=== PATIENT | male | born 1950 | race Caucasian/White ===

== ENCOUNTER 2017-12-31 10:05 | Outpatient (CLI) | payer MEDICARE ==
[2017-12-31] MEDS ORDERED: ISOVUE-370 76%-LOCM 1 ML ONE (11:42)
== END 2017-12-31 10:06 | disposition home or self-care (01) ==
LOC: BICCT 10:05
PROVIDERS: ATTEND Family Medicine
DX: C34.90 Malignant neoplasm of unspecified part of unspecified bronchus or lung (principal); R68.89 Other general symptoms and signs; Z90.2 Acquired absence of lung [part of]
CPT/HCPCS: 71260

== ENCOUNTER 2018-01-15 08:20 | Inpatient (IN) | payer MEDICARE ==
[2018-01-15 08:41] LABS: #Eosinphils 0.1 thou/uL (0.0-0.7); #Lymphocytes 0.8 thou/uL (1.20-3.40); #Monocytes 0.9 thou/uL (0.11-0.59); #Neutrophils 9.3 thou/uL (1.40-6.50); %Eosinophils 1.2 % (0.0-10.0); %Lymphocytes 7.2 % (21.0-51.0); %Monocytes 7.7 % (0.0-10.0); %Neutrophils 83.9 % (42.0-75.0); Hemoglobin 9.1 g/dL (14.0-18.0); Mean Corpuscular HGB CONC 31.9 g/dL (32.0-36.0); Mean Corpuscular Hemoglobin 27.5 pg (27.0-31.0); Mean Corpuscular Volume 86.3 fl (80.0-94.0); Mean Platelet Volume 5.2 fL (7.4-10.4); Platelet Count 530 thou/uL (130-400); RBC Distribution Width 13.6 % (11.5-14.5)
[2018-01-15 08:44] LABS: PTT 31.2 SEC (22.9-36.1); Prothrombin Time 13.1 SEC (12.0-14.7)
[2018-01-15 09:06] LABS: ALT (SGPT) 15 U/L (8-55); AST (SGOT) 14 U/L (5-34); Albumin 4.1 g/dL (3.4-4.8); Alkaline Phosphatase 102 U/L (40-150); Anion Gap 13 mmol/L (10-20); BUN (Urea Nitrogen) 20 mg/dL (8.4-25.7); Bilirubin, Total 0.4 mg/dL (0.2-1.2); Calc. Creatinine Clearance 60 mL/min (70-130); Calcium 10.3 mg/dL (7.8-10.44); Carbon Dioxide 32 mmol/L (23-31); Chloride 95 mmol/L (98-107); Estimated GFR-MDRD 76; Globulin 2.8 g/dL (2.4-3.5); Glucose 144 mg/dL (80-115); Potassium 4.9 mmol/L (3.5-5.1); Protein, Total 6.9 g/dL (5.8-8.1); Sodium 135 mmol/L (136-145)
[2018-01-15] MEDS ORDERED: Midazolam HCl 2 mg/2 ml Vial ONE (10:16)
[2018-01-15] MEDS ORDERED: Fentanyl 100 MCG/2 ML VIAL ONE (10:17)
--- NOTE | 2018-01-15 13:05 | RAD ---
PORTABLE UPRIGHT CHEST: INDICATION: Post lung biopsy. Sudden shortness of breath. The film shows development of a large left pneumothorax secondary to the lung biopsy. The patient is transferred back to CT suite for emergency chest tube placement. See CT-guided chest tube procedure . POS: [facility]
--- NOTE | 2018-01-15 13:24 | RAD ---
TWO VIEW CHEST: Portable inspiration and expiration chest exam obtained. INDICATION: Post lung biopsy and post left chest tube placement. FINDINGS: These films demonstrate a recurrent left pneumothorax which has occurred since the placement of the c hest tube. A CT at the time of the chest tube placement was obtained post chest tube placement which confirmed reexpansion of the lungs after the chest tube placement. The patient will be taken back to CT for adjustment of chest tube position as necessary. POS: [facility]
[2018-01-15] MEDS ORDERED: PROVENTIL INHALER 6.7 G (200 INHALATIONS) INH PRN (13:54)
--- NOTE | 2018-01-15 13:59 | CT ---
PROCEDURE: 1. Placement of left anterior chest tube with CT confirmation post chest tube placement performed at approximately 1148 hours. 2. Adjustment of the anterior chest tube with repeat CT chest at approximately 1252 hours. INDICATIONS: 1. Following a CT biopsy procedure, patient was taken to holding. The left lung biopsy was performed without complications and there was no pneumothorax post biopsy on the postprocedure CT. 2. Patient became hypoxic in the recovery room and a STAT chest x-ray revealed a large left pneumoth orax. Patient was taken back to CT for chest tube placement. The left anterior upper chest was prepped in the sterile manner. An Arrow 8 Cook Islander chest tube cathete r with trocar needle in place was inserted into the anterior left chest. The trocar was removed and t he catheter was advanced. The catheter was then attached to suction drainage. A CT scan was then performed and this confirmed reexpansion of the left lung with no significant resi dual pneumothorax. The chest tube appeared in adequate position. The tube was then secured with sutur e at the skin and a dressing placed. The tube was connected to Heimlich valve. PROCEDURE NOTE: After noticing a large left pneumothorax on the chest film and patient having low O2 sats, the patien t was immediately taken back to CT. The patient was placed on the CT table. The skin was cleaned with Betadine and an Arrow 8 [place] Islander chest tube kit was utilized. The 8 Cook Islander catheter with trocar was in serted into the left chest anteriorly and the catheter was advanced as the trocar was removed. Cathet er was attached to suction drainage. After suctioning the pneumothorax, CT confirmed no significant l eft pneumothorax. The catheter was then sutured to the skin and a sterile dressing applied. Heimlich valve was attached. Patient was taken back to the recovery room. The O2 sats returned to baseline and the patient was having no distress. A repeat chest x-ray taken in holding revealed a recurrent pneumothorax, even with chest tube in plac e and connected to Heimlich valve. The patient was then taken back to CT, where the tube was slightly readjusted and reattached to suction drainage. A repeat CT after readjustment confirmed reexpansion of the lung with only minimal residual pneumothorax at this time. A new sterile dressing was then nadira lied and the tube was reattached to Heimlich. The patient was in no distress, with O2 sats in the 90s . The patient was then taken back to recovery. POS: [facility]
--- NOTE | 2018-01-15 14:23 | CT ---
PROCEDURE CT GUIDED BIOPSY MASS LEFT LUNG: INDICATION: Mass in the left lung has been previously described and the patient is referred for biopsy of this ma ss with CT guidance. FINDINGS: A 19-gauge guide needle was introduced under CT guidance using an anterolateral approach. The mass i n the left upper lung was targeted. The needle was placed in the mid portion of the this mass using CT guidance. Trocar was removed and 20-gauge biopsy needle was attached. Biopsy sample was given to pathologist. Pathology confirmed material with Touch Prep Three successful biopsies were then obta ined at the same location and the samples were placed in formalin. Post procedure CT showed no significant pneumothorax. The patient was transferred to the recovery ro in good condition. CONSCIOUS SEDATION: The patient was given 25 mcg of Fentanyl and 1 mg Versed IV prior to beginning the procedure. PROCEDURE NOTE: The procedure including complications were discussed with the patient and . The likelihood of pn eumothorax was discussed with patient and the complications such as bleeding were also discussed. Op permit was signed and the patient desired to proceed. The patient was placed supine on the CT table. CT was obtained and the entry point on the skin was i dentified. The skin was then prepped and raped in a sterile manner. Local anesthesia was administer ed with Lidocaine. Conscious sedation was then administered with 25 mcg of Fentanyl and 1 mg Versed IV. A 19-gauge guide needle was introduced under CT guidance from an anterolateral approach in the left u pper chest. CT confirms placement of the tip of the needle within the mass in the left upper lung. Biopsy sample was then obtained with a 20-gauge biopsy instrument. The pathologist confirmed adequac y. Three additional cores were obtained and placed in formalin. Post procedure CT showed no significant pneumothorax. The catheter was sutured in place and a steril e dressing applied. There were no problems or complications at the time of the procedure. POS: [facility]
--- NOTE | 2018-01-15 15:21 | RAD ---
PORTABLE CHEST: Date: 01/15/18 Time: 1335 hours INDICATION: Post lung biopsy and post pneumothorax with chest tube placement follow-up. FINDINGS/IMPRESSION: There is recurrent left pneumothorax estimated in the 15-20% range. No other change. POS: [facility]
--- NOTE | 2018-01-15 15:26 | HP ---
HISTORY OF PRESENT ILLNESS: Mr. Maher is a 67-year-old gentleman with a history of right-sided l maryam cancer, status post right thoracotomy with upper and middle lobectomies. We have no records of h is previous treatment. He had chemo and radiation for advanced age disease following his right thora cotomy in [place], [place] in 2007. Recently, he had a 20 pound weight loss and he has begun to experi ence personality changes and falls. He has had no jaundice or bone pain. He on CT scan had a large left-sided lung mass and underwent a percutaneous biopsy today. He had a pneumothorax post-biopsy, w hich required placement of a small bore chest tube by Radiology. He is being admitted for observatio n with hopes for discharge in the next 24-48 hours. PAST MEDICAL HISTORY: 1. Congestive heart failure. 2. Depression. 3. Lung cancer. 4. Esophageal stricture post-radiation therapy. PAST SURGICAL HISTORY: 1. Hernia repair in 1967. 2. Right thoracotomy with upper and middle lobectomy in 2007. 3. Bilateral corneal transplants. SOCIAL HISTORY: He quit smoking around the time of his original thoracotomy. He is , does no t use alcohol. ALLERGIES: PENICILLIN. CURRENT MEDICATIONS: 1. Lisinopril 5 mg 1/2 tablet daily. 2. [place] 7.5/325 solution 5 mL as needed every 6 hours. 3. Lasix 20 mg every day p.r.n. 4. Flomax 0.4 mg every day. 5. Lovastatin 10 mg every day. 6. Wellbutrin-XL 300 mg daily. 7. Digoxin 125 mcg daily. 8. Carvedilol 3.125 mg every day. REVIEW OF SYSTEMS: Not performed. PHYSICAL EXAMINATION: GENERAL: This is an elderly cachectic gentleman who just underwent lung biopsy with an anteriorly pl aced chest tube to a Heimlich valve. LUNGS: Clear bilaterally. HEART: Rhythm is regular. ABDOMEN: Soft with some distention. There is active bowel sounds. EXTREMITIES: There is no edema. ASSESSMENT AND PLAN: Chest x-ray, this x-ray series both with chest tube and after chest tube was pl aced have been reviewed. He still has a small pneumothorax. He still has a small air leak with coug h on his chest tube. We will put him in the hospital and have him use incentive spirometer and repea t his chest x-ray tomorrow. If this is okay, he can probably go home tomorrow.
[2018-01-15] MEDS ORDERED: Milk Of Magnesia 30 ML UDCUP PO PRN (16:13)
[2018-01-15] MEDS: HYDROcodone/Acetaminophen 7.5/325 mg Tablet PO PRN ×2 (16:39→22:30)
[2018-01-15] MEDS: Famotidine 20 MG TAB PO SCH (20:00)
[2018-01-16] MEDS: HYDROcodone/Acetaminophen 7.5/325 mg Tablet PO PRN ×3 (04:29→20:53)
[2018-01-16] MEDS ORDERED: Sodium Chloride 0.9% 10 ML ONE (07:45)
[2018-01-16] MEDS: Loratadine 10 MG TAB PO SCH (08:35)
[2018-01-16] MEDS: Lisinopril 2.5 MG TAB PO SCH (08:35)
[2018-01-16] MEDS: Carvedilol 3.125 MG TAB PO SCH (08:36)
[2018-01-16] MEDS: Rosuvastatin 10 MG TAB PO SCH (08:36)
[2018-01-16] MEDS: Furosemide 20 MG TAB PO SCH (08:36)
[2018-01-16] MEDS: Digoxin 0.125 MG TAB PO SCH (08:36)
[2018-01-16] MEDS: Tamsulosin HCl 0.4 MG CAP PO SCH (08:36)
[2018-01-16] MEDS: Famotidine 20 MG TAB PO SCH ×2 (08:36→20:53)
--- NOTE | 2018-01-16 09:00 | RAD ---
CHEST 2 VIEWS: Date: 01/16/18 HISTORY: Follow-up pneumothorax. COMPARISON: Prior day's study. FINDINGS: Left-sided Heimlich valve type tube is present. Tube is along the left mid lung field laterally. The size of the left-sided pneumothorax has increased as compared to the prior study. No other interval c hange. IMPRESSION: Increased size to the left-sided pneumothorax. Findings telephone to Kavya, the patient's nurse, at the time of this dictation. CODE CR. POS: [facility]
[2018-01-16] MEDS: Fentanyl 100 MCG/2 ML VIAL SLOW IVP PRN (10:10)
[2018-01-16] MEDS ORDERED: Ketorolac Tromethamine 15 MG/ML VIAL IVP SCH (12:00)
[2018-01-16] MEDS: Ketorolac Tromethamine 30 MG/ML VIAL IVP SCH ×3 (12:45→23:48)
[2018-01-17] MEDS: HYDROcodone/Acetaminophen 7.5/325 mg Tablet PO PRN ×2 (03:14→20:53)
[2018-01-17] MEDS: Ketorolac Tromethamine 30 MG/ML VIAL IVP SCH ×4 (06:21→23:40)
[2018-01-17] MEDS: Furosemide 20 MG TAB PO SCH (08:48)
[2018-01-17] MEDS: Famotidine 20 MG TAB PO SCH ×2 (08:48→20:53)
[2018-01-17] MEDS: Carvedilol 3.125 MG TAB PO SCH (08:48)
[2018-01-17] MEDS: Tamsulosin HCl 0.4 MG CAP PO SCH (08:48)
[2018-01-17] MEDS: Loratadine 10 MG TAB PO SCH (08:48)
[2018-01-17] MEDS: Rosuvastatin 10 MG TAB PO SCH (08:48)
[2018-01-17] MEDS: Digoxin 0.125 MG TAB PO SCH (08:48)
[2018-01-17] MEDS: Lisinopril 2.5 MG TAB PO SCH (08:48)
--- NOTE | 2018-01-17 09:53 | RAD ---
PORTABLE CHEST: Date: 01/17/18 HISTORY: Follow-up pneumothorax. COMPARISON: Prior day's exam. FINDINGS: Left-sided Heimlich valve tube remains in position. There is significant improvement in the left-side d pneumothorax, still with mild apical pneumothorax remaining. No other interval change. IMPRESSION: Small residual apical pneumothorax on the left. Significant improvement in appearance as compared to the prior exam. POS: [facility]
[2018-01-17] MEDS: HYDROcodone/Acetaminophen 5/325 mg Tablet PO PRN (14:47)
[2018-01-18] MEDS: HYDROcodone/Acetaminophen 7.5/325 mg Tablet PO PRN ×2 (03:28→20:09)
[2018-01-18] MEDS: Ketorolac Tromethamine 30 MG/ML VIAL IVP SCH ×3 (06:12→17:48)
--- NOTE | 2018-01-18 08:35 | RAD ---
CHEST 1 VIEW: Date: 01/18/18 HISTORY: Pneumothorax. Follow-up. COMPARISON: 01/17/18. FINDINGS: Cardiac silhouette magnified by projection. Pulmonary vasculature unremarkable. Small left apical pne umothorax is unchanged. Calcification at the right apex and mass at the left apex are stable. Small c aliber left thoracostomy tube has changed position slightly, now directed more superiorly. Cardiac mo nitor leads overlie the chest. IMPRESSION: Small left apical pneumothorax, stable. POS: [facility]
[2018-01-18] MEDS: Furosemide 20 MG TAB PO SCH (09:45)
[2018-01-18] MEDS: Carvedilol 3.125 MG TAB PO SCH (09:45)
[2018-01-18] MEDS: Lisinopril 2.5 MG TAB PO SCH (09:45)
[2018-01-18] MEDS: Famotidine 20 MG TAB PO SCH ×2 (09:45→20:10)
[2018-01-18] MEDS: Digoxin 0.125 MG TAB PO SCH (09:45)
[2018-01-18] MEDS: Rosuvastatin 10 MG TAB PO SCH (09:46)
[2018-01-18] MEDS: Loratadine 10 MG TAB PO SCH (09:46)
[2018-01-18] MEDS: Tamsulosin HCl 0.4 MG CAP PO SCH (09:46)
[2018-01-18] MEDS: HYDROcodone/Acetaminophen 5/325 mg Tablet PO PRN (15:54)
[2018-01-19] MEDS: HYDROcodone/Acetaminophen 7.5/325 mg Tablet PO PRN ×2 (06:10→20:07)
[2018-01-19] MEDS: Ketorolac Tromethamine 30 MG/ML VIAL IVP SCH ×4 (06:11→17:35)
[2018-01-19] MEDS: Carvedilol 3.125 MG TAB PO SCH (09:51)
[2018-01-19] MEDS: Digoxin 0.125 MG TAB PO SCH (09:51)
[2018-01-19] MEDS: Furosemide 20 MG TAB PO SCH (09:51)
[2018-01-19] MEDS: Famotidine 20 MG TAB PO SCH ×2 (09:51→20:07)
[2018-01-19] MEDS: Loratadine 10 MG TAB PO SCH (09:51)
[2018-01-19] MEDS: Lisinopril 2.5 MG TAB PO SCH (09:51)
[2018-01-19] MEDS: Rosuvastatin 10 MG TAB PO SCH (09:52)
[2018-01-19] MEDS: Tamsulosin HCl 0.4 MG CAP PO SCH (09:52)
[2018-01-19] MEDS: Fentanyl 100 MCG/2 ML VIAL SLOW IVP PRN (13:04)
[2018-01-19 13:41] LABS: CO2 Tension 51.7 mmHg (35.0-45.0); pH, Arterial 7.33 (7.35-7.45)
[2018-01-19 13:42] LABS: Actual Bicarbonate (HCO3a) 26.6 mEq/L (22-28); Base Excess (BEa) 0.3 mEq/L (-2.0 to +3.0); O2 Tension (PaO2) 54.4 mmHg (> 80.0)
[2018-01-19 13:43] LABS: Calcium, Ionized 1.2 mmol/L (1.12-1.30); Hemoglobin (Hb) 8.4 g/dL (14.0-18.0)
[2018-01-19 13:44] LABS: ALV-art Gradient 237.475 (0-20); Puncture Site RB
[2018-01-19] MEDS ORDERED: Lidocaine 1% w/Epinephrine 1:100K 20 ML VIAL ONE (13:54)
--- NOTE | 2018-01-19 13:57 | RAD ---
PORTABLE AP CHEST X-RAY: 01/19/2018 HISTORY: Post thoracostomy tube. COMPARISON: 01/18/2018 FINDINGS: The left-sided thoracostomy tube remains in place; however, the left-sided pneumothorax is larger in size, and the pneumothorax occupies at least 30% of the volume of the left hemithorax. Parenchymal c hanges, volume loss, and calcifications in the right upper lung zone and right lung apex are again se en, related to chronic lung changes. The cardiac silhouette is within normal limits. The rounded pa renchymal opacity/mass in the right upper lobe is again present. No other interval change. IMPRESSION: 1. Interval enlargement of the left-sided pneumothorax when compared to the most recent study on . 2. Left upper lobe mass. 3. Parenchymal lung changes and calcification with volume loss in the right upper lung zone with pos t surgical changes, right upper lung zone. 4. The above findings were discussed with Santa, the nurse in charge of the patient's hospital care, o n 01/19/2018 at 1224 hours. CODE CR POS: [facility]
--- NOTE | 2018-01-19 14:01 | PDOC.PN ---
- Subjective Encounter Start Date: 01/19/18 Encounter Start Time: 14:00 Subjective: awake, sob+, on 100% non rebreather - Objective Resuscitation Status: Resuscitation Status FULL:Full Resuscitation MAR Reviewed: Yes Vital Signs & Weight: Vital Signs (12 hours) Temp Pulse Resp BP BP Pulse Ox 01/19/18 11:47 98.5 F 102 H 16 117/61 96 01/19/18 09:51 107 H 01/19/18 09:45 98.4 F 107 H 17 113/66 95 01/19/18 08:40 98.4 F 107 H 17 95 01/19/18 04:00 98.2 F 102 H 18 114/64 96 01/19/18 02:35 98 Weight Admit Weight 131 lb Weight 131 lb 4.8 oz I&O: 01/18/18 01/19/18 01/20/18 06:59 06:59 06:59 Intake Total 931 1560 Output Total 10 1300 Balance 921 260 Result Diagrams: 01/15/18 08:28 01/15/18 08:28 Phys Exam - Physical Examination HEENT: PERRLA, moist MMs Neck: no JVD, supple decreased air entry b/l Cardiovascular: RRR, no significant murmur Gastrointestinal: soft, no distention, positive bowel sounds Musculoskeletal: no edema, pulses present Neurological: non-focal, moves all 4 limbs Psychiatric: A&O x 3 Dx/Plan (1) Tension pneumothorax Code(s): J93.0 - SPONTANEOUS TENSION PNEUMOTHORAX Status: Acute (2) Lung cancer Code(s): C34.90 - MALIGNANT NEOPLASM OF UNSP PART OF UNSP BRONCHUS OR LUNG Status: Chronic Qualifiers: Laterality: right (3) HTN (hypertension) Code(s): I10 - ESSENTIAL (PRIMARY) HYPERTENSION Status: Chronic Qualifiers: Hypertension type: essential hypertension Qualified Code(s): I10 - Essential (primary) hypertension (4) CHF (congestive heart failure) Code(s): I50.9 - HEART FAILURE, UNSPECIFIED Status: Chronic Qualifiers: Heart failure type: unspecified Heart failure chronicity: chronic Qualified Code(s): I50.9 - Heart failure, unspecified (5) Dyslipidemia Code(s): E78.5 - HYPERLIPIDEMIA, UNSPECIFIED Status: Chronic (6) BPH (benign prostatic hyperplasia) Code(s): N40.0 - BENIGN PROSTATIC HYPERPLASIA WITHOUT LOWER URINRY TRACT SYMP Status: Chronic Qualifiers: Lower urinary tract symptom presence: symptoms absent Qualified Code(s): N40.0 - Benign prostatic hyperplasia without lower urinary tract symptoms - Plan will be getting chest tube now, here for the same -: d/w at bedside, is full code for now -: has recurrence of lung cancer, bx reveals poorly diff adenoca -: on coreg, dig, lisinopril, small dose lasix and flomax -: duonebs prn, I.spirometry. Will f/u. Echo for EF * . Review of Systems - Medications/Allergies Allergies/Adverse Reactions: Allergies Allergy/AdvReac Type Severity Reaction Status Date / Time Penicillins Allergy Verified 01/14/18 12:00 Medications: Current Medications Hydrocodone Bitart/Acetaminophen ([place] 7.5/325) 1 tab PO Q6H PRN PRN Reason: Pain Last Admin: 01/19/18 06:10 Dose: 1 tab Hydrocodone Bitart/Acetaminophen ([place] 5/325) 1 tab PO Q4H PRN PRN Reason: Moderate Pain (4-6) Last Admin: 01/18/18 15:54 Dose: 1 tab Albuterol Sulfate (Proventil Hfa) 2 puff INH Q4H PRN PRN Reason: Wheezing or Cough Carvedilol (Coreg) 3.125 mg PO DAILY [facility] Last Admin: 01/19/18 09:51 Dose: 3.125 mg Digoxin (Lanoxin) 0.125 mg PO DAILY [facility] Last Admin: 01/19/18 09:51 Dose: 0.125 mg Famotidine (Pepcid) 20 mg PO BID [facility] Last Admin: 01/19/18 09:51 Dose: 20 mg Fentanyl (Sublimaze) 25 mcg SLOW IVP Q2H PRN PRN Reason: Pain Last Admin: 01/19/18 13:04 Dose: 25 mcg Furosemide (Lasix) 20 mg PO DAILY [facility] Last Admin: 01/19/18 09:51 Dose: 20 mg Ketorolac Tromethamine (Toradol) 15 mg IVP Q6HR [facility] Stop: 01/21/18 12:01 Last Admin: 01/19/18 11:49 Dose: 15 mg Lisinopril (Zestril) 2.5 mg PO DAILY [facility] Last Admin: 01/19/18 09:51 Dose: 2.5 mg Loratadine (Claritin) 10 mg PO DAILY [facility] Last Admin: 01/19/18 09:51 Dose: 10 mg Magnesium Hydroxide (Milk Of Magnesium) 30 ml PO DAILYPRN PRN PRN Reason: Constipation Rosuvastatin Calcium (Crestor) 10 mg PO DAILY [facility] Last Admin: 01/19/18 09:52 Dose: 10 mg Sodium Chloride (Flush - Normal Saline) 10 ml IVF Q12HR [facility] Last Admin: 01/19/18 09:52 Dose: 10 ml Sodium Chloride (Flush - Normal Saline) 10 ml IVF PRN PRN PRN Reason: Saline Flush Last Admin: 01/18/18 06:13 Dose: 10 ml Tamsulosin HCl (Flomax) 0.4 mg PO DAILY [facility] Last Admin: 01/19/18 09:52 Dose: 0.4 mg
[2018-01-19] MEDS ORDERED: Morphine 10 MG/ML VIAL SLOW IVP PRN (14:05)
--- NOTE | 2018-01-19 14:40 | RAD ---
PORTABLE AP CHEST RADIOGRAPH: Date: 01-19-18 History: Code green. Left sided pneumothorax. Comparison: 01-19-18 at 1206 hours. FINDINGS: There has been interval progressive enlargement of the left sided pneumothorax with a large left pneu mothorax now present with collapse of portions of the left lung. Left sided thoracostomy tube is now in a different location and I am unsure if the catheter remains in the pleural space based on this si ngle projection. The mass in the left upper lobe is seen. Chronic opacity with calcifications in the right upper lobe with associated post-surgical changes are again seen. The patient is rotated to the right which limits adequate evaluation but developing tension pneumothorax is a possibility. No other interval change. IMPRESSION: 1. Interval enlargement of the left sided pneumothorax with a large left sided pneumothorax present a nd suggestion of developing tension pneumothorax. 2. Above findings were discussed with Candice nurse on the hospital floor on 01-19-18 at 1346 hours. T he attending physician for the code was not available due to status of the patient. POS: [facility]
[2018-01-19] MEDS: PROVENTIL INHALER 6.7 G (200 INHALATIONS) INH SCH ×3 (15:01→22:17)
--- NOTE | 2018-01-19 15:44 | RAD ---
CHEST ONE VIEW: History: Pneumothorax. Comparison: Prior day. FINDINGS: There is a very small apical pneumothorax remaining. Satisfactory appearance of the left sided chest tube. Densely calcified right upper lobe mass is present. IMPRESSION: Trace left apical pneumothorax remaining. POS: [facility]
[2018-01-19] MEDS ORDERED: diphenhydrAMINE 50 MG/ML VIAL IVP PRN (23:44)
[2018-01-19] MEDS ORDERED: Lorazepam 2 MG/ML VIAL SLOW IVP SCH (23:45)
[2018-01-20] MEDS: Ketorolac Tromethamine 30 MG/ML VIAL IVP SCH ×5 (00:22→23:22)
--- NOTE | 2018-01-20 01:14 | OP ---
DATE OF OPERATION: 01/19/2018 PREOPERATIVE DIAGNOSIS: Worsening left pneumothorax. POSTOPERATIVE DIAGNOSIS: Worsening left pneumothorax. PROCEDURE: Left chest tube placement. DRAIN: A 28-Amharic straight chest tube. DESCRIPTION OF PROCEDURE: The patient was brought to the Intensive Care Unit for acute shortness of breath. Chest x-ray showed a worsening left pneumothorax. Left chest was prepped and draped in usua l sterile fashion. An area over the left lateral chest wall was anesthetized with 1% lidocaine with epinephrine. The chest was then sharply entered. A 28-Amharic chest tube was placed with good burst of air. This was connected to the atrium. Lung was allowed to be coughed up and acute air leak stop ped. The patient immediately had improvement of his saturations and felt better. Tube was secured w ith 0 silk suture and sterile dressing applied.
[2018-01-20] MEDS ORDERED: Haloperidol Lactate 5 MG/ML VIAL SLOW IVP SCH (01:30)
[2018-01-20] MEDS: PROVENTIL INHALER 6.7 G (200 INHALATIONS) INH SCH ×6 (02:27→21:38)
[2018-01-20] MEDS ORDERED: Lorazepam 2 MG/ML VIAL SLOW IVP SCH (02:30)
[2018-01-20] MEDS ORDERED: Sterile Water 10 ML VIAL FS SCH (03:45)
[2018-01-20] MEDS ORDERED: Ziprasidone 20 MG VIAL IM SCH (03:45)
[2018-01-20 08:26] LABS: #Eosinphils 0.2 thou/uL (0.0-0.7); #Lymphocytes 0.8 thou/uL (1.20-3.40); #Monocytes 1.2 thou/uL (0.11-0.59); #Neutrophils 7.9 thou/uL (1.40-6.50); %Basophils 0.3 % (0.0-1.0); %Eosinophils 2.2 % (0.0-10.0); %Lymphocytes 7.7 % (21.0-51.0); %Monocytes 11.9 % (0.0-10.0); Hemoglobin 8.2 g/dL (14.0-18.0); Mean Corpuscular HGB CONC 31.3 g/dL (32.0-36.0); Mean Corpuscular Hemoglobin 26.7 pg (27.0-31.0); Mean Corpuscular Volume 85.5 fL (78.0-98.0); Mean Platelet Volume 5.6 fL (7.4-10.4); Platelet Count 543 thou/uL (130-400); Red Blood Cell (RBC) Count 3.06 mill/uL (4.70-6.10); White Blood Cell (WBC) Count 10.1 thou/uL (4.8-10.8)
--- NOTE | 2018-01-20 08:34 | PRG ---
DATE OF SERVICE: 01/20/2018 This morning he appears to be somewhat encephalopathic, but in no distress. His x-ray shows complete reexpansion of his left lung. PHYSICAL EXAMINATION: VITAL SIGNS: Pulse 117, blood pressure 140/80, sats 98%, respirations 21. CHEST: Chest reveals decreased breath sounds, no wheezing. CARDIAC: Normal S1, S2, no gallops. ABDOMEN: Soft, no mass. No recent lab has been ordered. IMPRESSION: 1. Chronic obstructive pulmonary disease. 2. Left pneumothorax. 3. Adenocarcinoma. PLAN: He can be transferred out of the ICU. Continue neb treatment and supportive care. I will follow.
[2018-01-20 08:52] LABS: ALT (SGPT) 15 U/L (8-55); AST (SGOT) 25 U/L (5-34); Albumin 3.3 g/dL (3.4-4.8); Alkaline Phosphatase 85 U/L (40-150); Anion Gap 13 mmol/L (10-20); BUN (Urea Nitrogen) 18 mg/dL (8.4-25.7); Bilirubin, Total 0.5 mg/dL (0.2-1.2); Calc. Creatinine Clearance 70 mL/min (70-130); Calcium 9.2 mg/dL (7.8-10.44); Carbon Dioxide 28 mmol/L (23-31); Chloride 99 mmol/L (98-107); Estimated GFR-MDRD Greater than 90; Globulin 2.5 g/dL (2.4-3.5); Glucose 100 mg/dL (80-115); Potassium 4.3 mmol/L (3.5-5.1); Protein, Total 5.8 g/dL (5.8-8.1); Sodium 136 mmol/L (136-145)
--- NOTE | 2018-01-20 09:08 | CON ---
DATE OF CONSULTATION: 01/19/2018 HISTORY OF PRESENT ILLNESS: Van Maher is a 67-year-old gentleman, cachectic, who was admitted t o the [facility] for a CT guided biopsy. Performed on 01/15/2018, he developed a pneumothorax shortly after the biopsy and small-bore chest tube was placed in. This evening, he developed marked respiratory distress with small-bore chest tube in place, probably clotted off, a large chest tube was inserted by Dr. Alcocer. He is now in the ICU and appears to be in no distress. 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 She for 38 years. 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 This was done in 2007. He apparently has been doing well until October and November, he then became short of breath and deconditioned, lost considerable weight. He was initially sent for physical therapy a nd continued weight loss. X-ray showed a mass in the left upper lung. So far, CT guided biopsy show ed adenocarcinoma. He was found on multiple times, but he denies any headache. 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 PAST SURGICAL HISTORY: In 2007, upper and middle lobectomy in the right side, bilateral cochlear imp lants for hearing, hernia repair. MEDICATIONS: From home include Flomax 0.4, rosuvastatin 10, lisinopril 2.5, hydrocodone, Lasix 20, d igoxin 0.125, Zyrtec 10, Coreg 3.125 plus albuterol inhaler. ALLERGIES: PENICILLIN. SOCIAL AND FAMILY HISTORY: As noted, no alcohol abuse. REVIEW OF SYSTEMS: Ten-point negative. PHYSICAL EXAMINATION: GENERAL: Sats 100% on 4 liters, pulse 100, blood pressure 130/70, respiratory rate 18. CHEST: Decreased breath sounds without any wheezing. CARDIAC: Normal S1, S2, no gallops. ABDOMEN: Soft without any masses. IMPRESSION: 1. Large left pneumothorax associated with dyspnea, status post CT guided biopsy of a lung mass. 2. Reexpansion of the pneumothorax following the chest tube insertion. 3. Probably chronic obstructive pulmonary disease. 4. Weight loss. 5. Hypertension. 6. Deaf. 7. History of congestive heart failure. PLAN: Await results of his scan. Pulmonary Critical Care will follow while in the ICU, appea rs to be stable. He does have a chest tube. Consultation note of 70 minutes, 50% in direct patient care.
--- NOTE | 2018-01-20 09:14 | RAD ---
SINGLE VIEW OF THE CHEST: Comparison: 01-19-18 History: Pneumothorax. Chest tube placement. FINDINGS: Single view of the chest shows a normal sized cardiomediastinal silhouette. The left sided chest tube is again seen. There may be a small tiny apical left pneumothorax. Opacification associated with olimpia cifications is seen in the right upper lobe. There are areas of airspace opacity in the left upper lo be and in the left hilar region. IMPRESSION: 1. Tiny residual left apical pneumothorax. 2. Airspace opacity in the left upper lobe could represent an infiltrate or mass. POS: [facility]
[2018-01-20] MEDS: Famotidine 20 MG TAB PO SCH ×2 (09:42→21:39)
[2018-01-20] MEDS: Loratadine 10 MG TAB PO SCH (09:42)
[2018-01-20] MEDS: Carvedilol 3.125 MG TAB PO SCH (09:42)
[2018-01-20] MEDS: Lisinopril 2.5 MG TAB PO SCH (09:42)
[2018-01-20] MEDS: risperiDONE 0.25 MG TAB PO SCH ×2 (09:42→21:39)
[2018-01-20] MEDS: Rosuvastatin 10 MG TAB PO SCH (09:43)
[2018-01-20] MEDS: Digoxin 0.125 MG TAB PO SCH (09:43)
[2018-01-20] MEDS: Tamsulosin HCl 0.4 MG CAP PO SCH (09:43)
[2018-01-20] MEDS: Furosemide 20 MG TAB PO SCH (09:43)
--- NOTE | 2018-01-20 12:38 | PDOC.PN ---
- Subjective Encounter Start Date: 01/20/18 Encounter Start Time: 07:15 Subjective: is confused this am and is in restraints - Objective Resuscitation Status: Resuscitation Status FULL:Full Resuscitation MAR Reviewed: Yes Vital Signs & Weight: Vital Signs (12 hours) Temp Pulse Resp BP Pulse Ox 01/20/18 11:00 98.3 F 01/20/18 10:05 119 H 23 H 99 01/20/18 09:43 110 H 01/20/18 09:42 110 H 134/85 01/20/18 08:00 97.5 F L 120 H 23 H 97 01/20/18 07:00 97.5 F L 01/20/18 06:20 99 01/20/18 04:00 97.8 F 01/20/18 02:27 121 H 18 100 Weight Admit Weight 131 lb Weight 131 lb 13.383 oz Most Recent Monitor Data Heart Rate from ECG 121 NIBP 134/85 NIBP BP-Mean 105 Respiration from ECG 15 SpO2 100 I&O: 01/19/18 01/20/18 01/21/18 06:59 06:59 06:59 Intake Total 1560 930 150 Output Total 1300 850 600 Balance 260 80 -450 Result Diagrams: 01/20/18 08:20 01/20/18 08:20 Additional Labs: Accuchecks 01/19/18 13:22 POC Glucose 146 H Phys Exam - Physical Examination HEENT: PERRLA dry mucosa Neck: no JVD, supple Respiratory: no wheezing, no rales chest tube left chest Cardiovascular: RRR, no significant murmur Gastrointestinal: soft, non-tender, positive bowel sounds Musculoskeletal: no edema, pulses present Neurological: non-focal, moves all 4 limbs Dx/Plan (1) Tension pneumothorax Code(s): J93.0 - SPONTANEOUS TENSION PNEUMOTHORAX Status: Resolved (2) Lung cancer Code(s): C34.90 - MALIGNANT NEOPLASM OF UNSP PART OF UNSP BRONCHUS OR LUNG Status: Chronic Qualifiers: Laterality: right (3) HTN (hypertension) Code(s): I10 - ESSENTIAL (PRIMARY) HYPERTENSION Status: Chronic Qualifiers: Hypertension type: essential hypertension Qualified Code(s): I10 - Essential (primary) hypertension (4) CHF (congestive heart failure) Code(s): I50.9 - HEART FAILURE, UNSPECIFIED Status: Chronic Qualifiers: Heart failure type: unspecified Heart failure chronicity: chronic Qualified Code(s): I50.9 - Heart failure, unspecified (5) Dyslipidemia Code(s): E78.5 - HYPERLIPIDEMIA, UNSPECIFIED Status: Chronic (6) BPH (benign prostatic hyperplasia) Code(s): N40.0 - BENIGN PROSTATIC HYPERPLASIA WITHOUT LOWER URINRY TRACT SYMP Status: Chronic Qualifiers: Lower urinary tract symptom presence: symptoms absent Qualified Code(s): N40.0 - Benign prostatic hyperplasia without lower urinary tract symptoms - Plan personality change from few days before hospitalization -: will get MRI if he can lay still with some ativan/meena, d/w -: -on, cant get his PET scan now -: gentle iv hydration, echo for lv function -: is on coreg, dig, lisinopril, crestor, hold lasix for now * . Review of Systems - Medications/Allergies Allergies/Adverse Reactions: Allergies Allergy/AdvReac Type Severity Reaction Status Date / Time Penicillins Allergy Verified 01/14/18 12:00 Medications: Current Medications Hydrocodone Bitart/Acetaminophen ([place] 7.5/325) 1 tab PO Q6H PRN PRN Reason: Pain Last Admin: 01/19/18 20:07 Dose: 1 tab Hydrocodone Bitart/Acetaminophen ([place] 5/325) 1 tab PO Q4H PRN PRN Reason: Moderate Pain (4-6) Last Admin: 01/18/18 15:54 Dose: 1 tab Albuterol Sulfate (Proventil Hfa) 2 puff INH Q4H [facility] Last Admin: 01/20/18 10:09 Dose: Not Given Albuterol/Ipratropium (Duoneb) 3 ml NEB [id number] [facility] Carvedilol (Coreg) 3.125 mg PO DAILY [facility] Last Admin: 01/20/18 09:42 Dose: 3.125 mg Digoxin (Lanoxin) 0.125 mg PO DAILY [facility] Last Admin: 01/20/18 09:43 Dose: 0.125 mg Famotidine (Pepcid) 20 mg PO BID [facility] Last Admin: 01/20/18 09:42 Dose: 20 mg Fentanyl (Sublimaze) 25 mcg SLOW IVP Q2H PRN PRN Reason: Pain Last Admin: 01/19/18 13:04 Dose: 25 mcg Furosemide (Lasix) 20 mg PO DAILY [facility] Last Admin: 01/20/18 09:43 Dose: 20 mg Ketorolac Tromethamine (Toradol) 15 mg IVP Q6HR [facility] Stop: 01/21/18 12:01 Last Admin: 01/20/18 11:58 Dose: 15 mg Lisinopril (Zestril) 2.5 mg PO DAILY [facility] Last Admin: 01/20/18 09:42 Dose: 2.5 mg Loratadine (Claritin) 10 mg PO DAILY [facility] Last Admin: 01/20/18 09:42 Dose: 10 mg Magnesium Hydroxide (Milk Of Magnesium) 30 ml PO DAILYPRN PRN PRN Reason: Constipation Morphine Sulfate (Morphine) 2 mg SLOW IVP Q4H PRN PRN Reason: Chest Pain/BP Elevations Risperidone (Risperidone) 0.25 mg PO BID [facility] Last Admin: 01/20/18 09:42 Dose: 0.25 mg Rosuvastatin Calcium (Crestor) 10 mg PO DAILY [facility] Last Admin: 01/20/18 09:43 Dose: 10 mg Sodium Chloride (Flush - Normal Saline) 10 ml IVF Q12HR [facility] Last Admin: 01/20/18 09:44 Dose: 10 ml Sodium Chloride (Flush - Normal Saline) 10 ml IVF PRN PRN PRN Reason: Saline Flush Last Admin: 01/18/18 06:13 Dose: 10 ml Tamsulosin HCl (Flomax) 0.4 mg PO DAILY [facility] Last Admin: 01/20/18 09:43 Dose: 0.4 mg Zolpidem Tartrate (Ambien) 5 mg PO HSPRN PRN PRN Reason: .SLEEP
[2018-01-20] MEDS: Zolpidem Tartrate 5 MG TAB PO PRN (21:39)
[2018-01-20] MEDS: HYDROcodone/Acetaminophen 7.5/325 mg Tablet PO PRN (23:41)
[2018-01-21] MEDS: PROVENTIL INHALER 6.7 G (200 INHALATIONS) INH SCH ×2 (02:13→06:55)
[2018-01-21] MEDS: Ketorolac Tromethamine 30 MG/ML VIAL IVP SCH ×2 (07:02→13:30)
[2018-01-21] MEDS ORDERED: Ziprasidone 20 MG CAP PO SCH (09:00)
--- NOTE | 2018-01-21 09:51 | PRG ---
DATE OF SERVICE: 01/21/2018 SUBJECTIVE: This morning, he is awake, alert, responsive. OBJECTIVE: VITAL SIGNS: Sats are 90%, pulse 120, temperature 98, blood pressure 130/56. CHEST: Chest reveals decreased breath sounds without any wheezing. CARDIAC: Normal S1, S2. No gallops. ABDOMEN: Soft, no masses. LABORATORY DATA: Chemistry profile is unremarkable. IMPRESSION: Encephalopathy, adenocarcinoma, pneumothorax, chronic obstructive pulmonary disease. PLAN: The patient appears to be at his baseline. Hopefully, once the chest tube is removed, he can be discharged home for ongoing further evaluation.
[2018-01-21] MEDS: Carvedilol 3.125 MG TAB PO SCH (10:00)
[2018-01-21] MEDS: Digoxin 0.125 MG TAB PO SCH (10:00)
[2018-01-21] MEDS: Furosemide 20 MG TAB PO SCH (10:00)
[2018-01-21] MEDS: Lisinopril 2.5 MG TAB PO SCH (10:00)
[2018-01-21] MEDS: Tamsulosin HCl 0.4 MG CAP PO SCH (10:00)
[2018-01-21] MEDS: Famotidine 20 MG TAB PO SCH ×2 (10:00→21:38)
[2018-01-21] MEDS: Loratadine 10 MG TAB PO SCH (10:27)
[2018-01-21] MEDS: Rosuvastatin 10 MG TAB PO SCH (10:27)
--- NOTE | 2018-01-21 11:55 | PDOC.PN ---
- Subjective Encounter Start Date: 01/21/18 Encounter Start Time: 09:00 Subjective: not oriented but awake and pacing betw chair and bed -: not wearing hearing aid -: sitter in room - Objective Resuscitation Status: Resuscitation Status FULL:Full Resuscitation MAR Reviewed: Yes Vital Signs & Weight: Vital Signs (12 hours) Temp Pulse Resp BP BP BP Pulse Ox 01/21/18 10:00 130 H 106/57 L 01/21/18 08:40 99.5 F 130 H 19 106/57 L 96 01/21/18 06:59 93 L 01/21/18 06:56 133 H 18 01/21/18 06:16 98.9 F 110 H 18 134/56 L Weight Admit Weight 131 lb Weight 131 lb 13.383 oz Most Recent Monitor Data Heart Rate from ECG 115 NIBP 146/131 NIBP BP-Mean 136 Respiration from ECG 19 SpO2 100 I&O: 01/20/18 01/21/18 01/22/18 06:59 06:59 06:59 Intake Total 930 250 Output Total 850 1225 Balance 80 -975 Result Diagrams: 01/20/18 08:20 01/20/18 08:20 Phys Exam - Physical Examination HEENT: PERRLA, sclera anicteric Neck: no JVD, supple Respiratory: no wheezing, no rales chest tube left side+ Cardiovascular: RRR, no significant murmur Gastrointestinal: soft, non-tender, positive bowel sounds Musculoskeletal: no edema, pulses present Neurological: non-focal, moves all 4 limbs Dx/Plan (1) Acute encephalopathy Code(s): G93.40 - ENCEPHALOPATHY, UNSPECIFIED Status: Acute (2) Tension pneumothorax Code(s): J93.0 - SPONTANEOUS TENSION PNEUMOTHORAX Status: Resolved (3) Lung cancer Code(s): C34.90 - MALIGNANT NEOPLASM OF UNSP PART OF UNSP BRONCHUS OR LUNG Status: Chronic Qualifiers: Laterality: right (4) HTN (hypertension) Code(s): I10 - ESSENTIAL (PRIMARY) HYPERTENSION Status: Chronic Qualifiers: Hypertension type: essential hypertension Qualified Code(s): I10 - Essential (primary) hypertension (5) CHF (congestive heart failure) Code(s): I50.9 - HEART FAILURE, UNSPECIFIED Status: Chronic Qualifiers: Heart failure type: unspecified Heart failure chronicity: chronic Qualified Code(s): I50.9 - Heart failure, unspecified (6) Dyslipidemia Code(s): E78.5 - HYPERLIPIDEMIA, UNSPECIFIED Status: Chronic (7) BPH (benign prostatic hyperplasia) Code(s): N40.0 - BENIGN PROSTATIC HYPERPLASIA WITHOUT LOWER URINRY TRACT SYMP Status: Chronic Qualifiers: Lower urinary tract symptom presence: symptoms absent Qualified Code(s): N40.0 - Benign prostatic hyperplasia without lower urinary tract symptoms - Plan geodon 20mg bid with cogentin -: will need placement once chest tube is out -: MRI when cognitively stable and calm -: outpt PET scan -: nebs, i.spirometry, fentanyl and toradol prn * . On coreg, dig, lisinopril. Review of Systems - Medications/Allergies Allergies/Adverse Reactions: Allergies Allergy/AdvReac Type Severity Reaction Status Date / Time Penicillins Allergy Verified 01/14/18 12:00 Medications: Current Medications Hydrocodone Bitart/Acetaminophen ([place] 7.5/325) 1 tab PO Q6H PRN PRN Reason: Pain Last Admin: 01/20/18 23:41 Dose: 1 tab Hydrocodone Bitart/Acetaminophen ([place] 5/325) 1 tab PO Q4H PRN PRN Reason: Moderate Pain (4-6) Last Admin: 01/18/18 15:54 Dose: 1 tab Albuterol/Ipratropium (Duoneb) 3 ml NEB [id number] [facility] Last Admin: 01/21/18 06:56 Dose: 3 ml Benztropine Mesylate (Cogentin) 1 mg PO DAILY [facility] Carvedilol (Coreg) 3.125 mg PO DAILY [facility] Last Admin: 01/21/18 10:00 Dose: 3.125 mg Digoxin (Lanoxin) 0.125 mg PO DAILY [facility] Last Admin: 01/21/18 10:00 Dose: 0.125 mg Famotidine (Pepcid) 20 mg PO BID [facility] Last Admin: 01/21/18 10:00 Dose: 20 mg Fentanyl (Sublimaze) 25 mcg SLOW IVP Q2H PRN PRN Reason: Pain Last Admin: 01/19/18 13:04 Dose: 25 mcg Furosemide (Lasix) 20 mg PO DAILY [facility] Last Admin: 01/21/18 10:00 Dose: 20 mg Ketorolac Tromethamine (Toradol) 15 mg IVP Q6HR [facility] Stop: 01/21/18 12:01 Last Admin: 01/21/18 07:02 Dose: 15 mg Lisinopril (Zestril) 2.5 mg PO DAILY [facility] Last Admin: 01/21/18 10:00 Dose: 2.5 mg Loratadine (Claritin) 10 mg PO DAILY [facility] Last Admin: 01/21/18 10:27 Dose: Not Given Magnesium Hydroxide (Milk Of Magnesium) 30 ml PO DAILYPRN PRN PRN Reason: Constipation Morphine Sulfate (Morphine) 2 mg SLOW IVP Q4H PRN PRN Reason: Chest Pain/BP Elevations Rosuvastatin Calcium (Crestor) 10 mg PO DAILY [facility] Last Admin: 01/21/18 10:27 Dose: Not Given Sodium Chloride (Flush - Normal Saline) 10 ml IVF Q12HR [facility] Last Admin: 01/21/18 10:02 Dose: 10 ml Sodium Chloride (Flush - Normal Saline) 10 ml IVF PRN PRN PRN Reason: Saline Flush Last Admin: 01/18/18 06:13 Dose: 10 ml Tamsulosin HCl (Flomax) 0.4 mg PO DAILY [facility] Last Admin: 01/21/18 10:00 Dose: 0.4 mg Ziprasidone (Geodon) 20 mg PO BID [facility] Zolpidem Tartrate (Ambien) 5 mg PO HSPRN PRN PRN Reason: .SLEEP Last Admin: 01/20/18 21:39 Dose: 5 mg
[2018-01-21] MEDS: HYDROcodone/Acetaminophen 7.5/325 mg Tablet PO PRN (13:33)
[2018-01-21] MEDS ORDERED: risperiDONE 0.25 MG TAB PO SCH (21:00)
[2018-01-21] MEDS: Ziprasidone 20 MG CAP PO SCH (21:38)
[2018-01-22] MEDS: Zolpidem Tartrate 5 MG TAB PO PRN (03:37)
[2018-01-22] MEDS: HYDROcodone/Acetaminophen 7.5/325 mg Tablet PO PRN (06:25)
--- NOTE | 2018-01-22 08:06 | RAD ---
SINGLE VIEW OF THE CHEST: COMPARISON: 01/21/18. HISTORY: Chest pain for pneumothorax. FINDINGS: A single view of the chest shows a normal-size cardiomediastinal silhouette. The left lower chest is unchanged in position. Opacification associated with calcifications seen in the right upper thorax. There is a mass-like opacity projecting over the left upper lobe. There is a tiny residual left ap ical pneumothorax. Air is seen along the left chest wall. IMPRESSION: Stable exam. POS: BARI
--- NOTE | 2018-01-22 08:35 | PRG ---
DATE OF SERVICE: 01/22/2018 He appears to be a little bit more responsive this morning, less agitated. PHYSICAL EXAMINATION: VITAL SIGNS: Sats are 94% on room air, respiration 20, pulse 117, temperature 99, blood pressure 119 /70. CHEST: Chest revealed decreased breath sounds without wheezing. CARDIAC: Normal S1, S2, no gallops. ABDOMEN: Soft, no mass. His x-ray shows a left-sided chest tube, left lower lung mass. IMPRESSION: 1. Status post CT guided biopsy with a left-sided pneumothorax. 2. Chronic obstructive pulmonary disease. 3. Adenocarcinoma. 4. Encephalopathy. PLAN: Home when CT is removed. Otherwise, continue supportive care and PT. I will follow.
[2018-01-22] MEDS: Rosuvastatin 10 MG TAB PO SCH (10:25)
[2018-01-22] MEDS: Ziprasidone 20 MG CAP PO SCH ×2 (10:25→21:12)
[2018-01-22] MEDS: Lisinopril 2.5 MG TAB PO SCH (11:14)
[2018-01-22] MEDS: Digoxin 0.125 MG TAB PO SCH (11:14)
[2018-01-22] MEDS: Famotidine 20 MG TAB PO SCH ×2 (11:14→21:12)
[2018-01-22] MEDS: Tamsulosin HCl 0.4 MG CAP PO SCH (11:15)
[2018-01-22] MEDS: Benztropine 1 MG TAB PO SCH (11:15)
[2018-01-22] MEDS: Carvedilol 3.125 MG TAB PO SCH (11:15)
[2018-01-22] MEDS: Furosemide 20 MG TAB PO SCH (11:16)
[2018-01-22] MEDS: Loratadine 10 MG TAB PO SCH (11:16)
--- NOTE | 2018-01-22 11:40 | PDOC.PN ---
- Subjective Encounter Start Date: 01/22/18 Encounter Start Time: 09:20 Subjective: is lethargic this am, got narco just a while back -: responds to verbal stimuli -: yet to eat breakfast - Objective Resuscitation Status: Resuscitation Status FULL:Full Resuscitation MAR Reviewed: Yes Vital Signs & Weight: Vital Signs (12 hours) Temp Pulse Resp BP BP Pulse Ox 01/22/18 11:14 108 H 126/59 L 01/22/18 06:29 117 H 20 01/22/18 04:00 99.1 F 113 H 20 119/70 95 Weight Admit Weight 131 lb Weight 131 lb 3.2 oz Most Recent Monitor Data Heart Rate from ECG 115 NIBP 146/131 NIBP BP-Mean 136 Respiration from ECG 19 SpO2 100 I&O: 01/21/18 01/22/18 01/23/18 06:59 06:59 06:59 Intake Total 250 970 Output Total 1225 Balance -975 970 Result Diagrams: 01/20/18 08:20 01/20/18 08:20 Phys Exam - Physical Examination HEENT: PERRLA, sclera anicteric Neck: no JVD, supple Respiratory: no wheezing, no rales left chest tube+ Cardiovascular: RRR, no significant murmur Gastrointestinal: soft, non-tender, positive bowel sounds Musculoskeletal: no edema, pulses present Neurological: non-focal, moves all 4 limbs Dx/Plan (1) Acute encephalopathy Code(s): G93.40 - ENCEPHALOPATHY, UNSPECIFIED Status: Acute Comment: resolving (2) Lung cancer Code(s): C34.90 - MALIGNANT NEOPLASM OF UNSP PART OF UNSP BRONCHUS OR LUNG Status: Chronic Qualifiers: Laterality: right (3) HTN (hypertension) Code(s): I10 - ESSENTIAL (PRIMARY) HYPERTENSION Status: Chronic Qualifiers: Hypertension type: essential hypertension Qualified Code(s): I10 - Essential (primary) hypertension (4) CHF (congestive heart failure) Code(s): I50.9 - HEART FAILURE, UNSPECIFIED Status: Chronic Qualifiers: Heart failure type: unspecified Heart failure chronicity: chronic Qualified Code(s): I50.9 - Heart failure, unspecified (5) Dyslipidemia Code(s): E78.5 - HYPERLIPIDEMIA, UNSPECIFIED Status: Chronic (6) BPH (benign prostatic hyperplasia) Code(s): N40.0 - BENIGN PROSTATIC HYPERPLASIA WITHOUT LOWER URINRY TRACT SYMP Status: Chronic Qualifiers: Lower urinary tract symptom presence: symptoms absent Qualified Code(s): N40.0 - Benign prostatic hyperplasia without lower urinary tract symptoms - Plan pneumothorax resolved, chest tube per 's advice -: hold geodon this am, start from pm -: will need placement, PT/OT eval -: on coreg, dig, lisino, lasix and crestor -: has sitter at bedside * . Review of Systems - Medications/Allergies Allergies/Adverse Reactions: Allergies Allergy/AdvReac Type Severity Reaction Status Date / Time Penicillins Allergy Verified 01/14/18 12:00 Medications: Current Medications Hydrocodone Bitart/Acetaminophen ([place] 7.5/325) 1 tab PO Q6H PRN PRN Reason: Pain Last Admin: 01/22/18 06:25 Dose: 1 tab Hydrocodone Bitart/Acetaminophen ([place] 5/325) 1 tab PO Q4H PRN PRN Reason: Moderate Pain (4-6) Last Admin: 01/18/18 15:54 Dose: 1 tab Albuterol/Ipratropium (Duoneb) 3 ml NEB [id number] [facility] Last Admin: 01/22/18 06:29 Dose: 3 ml Benztropine Mesylate (Cogentin) 1 mg PO DAILY [facility] Last Admin: 01/22/18 11:15 Dose: 1 mg Carvedilol (Coreg) 3.125 mg PO DAILY [facility] Last Admin: 01/22/18 11:15 Dose: 3.125 mg Digoxin (Lanoxin) 0.125 mg PO DAILY [facility] Last Admin: 01/22/18 11:14 Dose: 0.125 mg Famotidine (Pepcid) 20 mg PO BID [facility] Last Admin: 01/22/18 11:14 Dose: Not Given Fentanyl (Sublimaze) 25 mcg SLOW IVP Q2H PRN PRN Reason: Pain Last Admin: 01/19/18 13:04 Dose: 25 mcg Furosemide (Lasix) 20 mg PO DAILY [facility] Last Admin: 01/22/18 11:16 Dose: 20 mg Lisinopril (Zestril) 2.5 mg PO DAILY [facility] Last Admin: 01/22/18 11:14 Dose: 2.5 mg Loratadine (Claritin) 10 mg PO DAILY [facility] Last Admin: 01/22/18 11:16 Dose: Not Given Magnesium Hydroxide (Milk Of Magnesium) 30 ml PO DAILYPRN PRN PRN Reason: Constipation Morphine Sulfate (Morphine) 2 mg SLOW IVP Q4H PRN PRN Reason: Chest Pain/BP Elevations Rosuvastatin Calcium (Crestor) 10 mg PO DAILY [facility] Last Admin: 01/22/18 10:25 Dose: Not Given Sodium Chloride (Flush - Normal Saline) 10 ml IVF Q12HR [facility] Last Admin: 01/22/18 11:17 Dose: 10 ml Sodium Chloride (Flush - Normal Saline) 10 ml IVF PRN PRN PRN Reason: Saline Flush Last Admin: 01/21/18 13:35 Dose: 10 ml Tamsulosin HCl (Flomax) 0.4 mg PO DAILY [facility] Last Admin: 01/22/18 11:15 Dose: 0.4 mg Ziprasidone (Geodon) 20 mg PO BID [facility] Last Admin: 01/22/18 10:25 Dose: Not Given Zolpidem Tartrate (Ambien) 5 mg PO HSPRN PRN PRN Reason: .SLEEP Last Admin: 01/22/18 03:37 Dose: 5 mg
[2018-01-22] MEDS: HYDROcodone/Acetaminophen 5/325 mg Tablet PO PRN (16:28)
[2018-01-23] MEDS: Zolpidem Tartrate 5 MG TAB PO PRN (02:03)
[2018-01-23] MEDS: HYDROcodone/Acetaminophen 7.5/325 mg Tablet PO PRN ×2 (03:27→20:44)
--- NOTE | 2018-01-23 07:37 | RAD ---
SINGLE VIEW OF THE CHEST: COMPARISON: 01/22/18. HISTORY: Chest tube placement for pneumothorax. FINDINGS: A single view of the chest shows a normal-size cardiomediastinal silhouette. There is a left-sided c hest tube. The left apical pneumothorax cannot be seen on today's exam. There is air in the left ch est wall. Opacification associated with calcifications is seen in the upper aspect of the right thor ax. IMPRESSION: Nonvisualization of left-sided pneumothorax. POS: BEENA
[2018-01-23] MEDS: Carvedilol 3.125 MG TAB PO SCH (09:27)
[2018-01-23] MEDS: Digoxin 0.125 MG TAB PO SCH (09:27)
[2018-01-23] MEDS: Benztropine 1 MG TAB PO SCH (09:27)
[2018-01-23] MEDS: Ziprasidone 20 MG CAP PO SCH ×2 (09:28→20:43)
[2018-01-23] MEDS: Loratadine 10 MG TAB PO SCH (09:28)
[2018-01-23] MEDS: Furosemide 20 MG TAB PO SCH (09:28)
[2018-01-23] MEDS: Famotidine 20 MG TAB PO SCH ×2 (09:28→20:43)
[2018-01-23] MEDS: Lisinopril 2.5 MG TAB PO SCH (09:28)
[2018-01-23] MEDS: Tamsulosin HCl 0.4 MG CAP PO SCH (09:28)
[2018-01-23] MEDS: Rosuvastatin 10 MG TAB PO SCH (09:28)
[2018-01-23 11:56] LABS: #Eosinphils 0.4 thou/uL (0.0-0.7); #Lymphocytes 0.6 thou/uL (1.20-3.40); #Monocytes 1.1 thou/uL (0.11-0.59); #Neutrophils 6.2 thou/uL (1.40-6.50); %Basophils 0.5 % (0.0-1.0); %Eosinophils 4.5 % (0.0-10.0); %Lymphocytes 7.2 % (21.0-51.0); %Monocytes 13.4 % (0.0-10.0); %Neutrophils 74.4 % (42.0-75.0); Hemoglobin 8.6 g/dL (14.0-18.0); Mean Corpuscular HGB CONC 31.7 g/dL (32.0-36.0); Mean Corpuscular Hemoglobin 27.3 pg (27.0-31.0); Mean Platelet Volume 5.6 fL (7.4-10.4); Platelet Count 517 thou/uL (130-400); RBC Distribution Width 14.3 % (11.5-14.5); Red Blood Cell (RBC) Count 3.16 mill/uL (4.70-6.10); White Blood Cell (WBC) Count 8.3 thou/uL (4.8-10.8)
[2018-01-23] MEDS ORDERED: Bisacodyl 10 MG SUPP PR PRN (12:06)
[2018-01-23] MEDS ORDERED: Polyethylene Glycol 3350 17 GM Packet PO SCH (12:15)
[2018-01-23 12:18] LABS: Anion Gap 14 mmol/L (10-20); BUN (Urea Nitrogen) 23 mg/dL (8.4-25.7); Calc. Creatinine Clearance 65 mL/min (70-130); Calcium 9.1 mg/dL (7.8-10.44); Carbon Dioxide 28 mmol/L (23-31); Chloride 97 mmol/L (98-107); Estimated GFR-MDRD 85; Glucose 153 mg/dL (80-115); Potassium 3.9 mmol/L (3.5-5.1); Sodium 135 mmol/L (136-145)
--- NOTE | 2018-01-23 13:40 | PDOC.PN ---
- Subjective Encounter Start Date: 01/23/18 Encounter Start Time: 12:00 -: old records requested/rev Pt seen and examined, chart reviewed in its entirety, this is my first visit with this patient Pt had cochlear device on and can hear, no F/C, no n/V/d/C, no CP or SOB CT in place, CT surgery note reviewed All systems reviewed and neg for all except as stated above - Objective Resuscitation Status: Resuscitation Status FULL:Full Resuscitation MAR Reviewed: Yes Vital Signs & Weight: Vital Signs (12 hours) Temp Pulse Resp BP BP BP Pulse Ox 01/23/18 12:01 99.1 F 113 H 16 104/55 L 97 01/23/18 09:28 102 H 116/62 01/23/18 09:27 102 H 01/23/18 09:24 98.0 F 102 H 16 116/62 96 01/23/18 09:00 98.0 F 102 H 16 96 01/23/18 06:12 96 16 97 01/23/18 04:00 99.2 F 96 12 104/66 97 Weight Admit Weight 131 lb Weight 130 lb Most Recent Monitor Data Heart Rate from ECG 115 NIBP 146/131 NIBP BP-Mean 136 Respiration from ECG 19 SpO2 100 I&O: 01/22/18 01/23/18 01/24/18 06:59 06:59 06:59 Intake Total 970 1020 Balance 970 1020 Result Diagrams: 01/23/18 11:49 01/23/18 11:49 Radiology Reviewed by me: Yes EKG Reviewed by me: Yes Phys Exam - Physical Examination Constitutional: NAD HEENT: PERRLA, moist MMs, sclera anicteric, oral pharynx no lesions Neck: no nodes, no JVD, supple, full ROM Respiratory: no wheezing, no rales, no rhonchi, clear to auscultation bilateral Cardiovascular: RRR, no significant murmur, no rub Gastrointestinal: soft, non-tender, no distention, positive bowel sounds Musculoskeletal: no edema, pulses present Neurological: non-focal, normal sensation, moves all 4 limbs Lymphatic: no nodes Psychiatric: normal affect, A&O x 3 Skin: no rash, normal turgor, cap refill <2 seconds Dx/Plan (1) Pneumothorax after biopsy Code(s): J95.811 - POSTPROCEDURAL PNEUMOTHORAX Status: Acute Comment: CT in , keep through weekend on waterseal (2) Acute encephalopathy Code(s): G93.40 - ENCEPHALOPATHY, UNSPECIFIED Status: Resolved Comment: resolved (3) BPH (benign prostatic hyperplasia) Code(s): N40.0 - BENIGN PROSTATIC HYPERPLASIA WITHOUT LOWER URINRY TRACT SYMP Status: Chronic Qualifiers: Lower urinary tract symptom presence: symptoms absent Qualified Code(s): N40.0 - Benign prostatic hyperplasia without lower urinary tract symptoms (4) CHF (congestive heart failure) Code(s): I50.9 - HEART FAILURE, UNSPECIFIED Status: Chronic Qualifiers: Heart failure type: unspecified Heart failure chronicity: chronic Qualified Code(s): I50.9 - Heart failure, unspecified (5) Dyslipidemia Code(s): E78.5 - HYPERLIPIDEMIA, UNSPECIFIED Status: Chronic (6) HTN (hypertension) Code(s): I10 - ESSENTIAL (PRIMARY) HYPERTENSION Status: Chronic Qualifiers: Hypertension type: essential hypertension Qualified Code(s): I10 - Essential (primary) hypertension (7) Lung cancer Code(s): C34.90 - MALIGNANT NEOPLASM OF UNSP PART OF UNSP BRONCHUS OR LUNG Status: Chronic Qualifiers: Laterality: right - Plan * .
--- NOTE | 2018-01-23 20:00 | PRG ---
DATE OF SERVICE: 01/23/2018 SERVICE: Pulmonary Medicine. INTERVAL HISTORY: The patient is breathing fine. It is hard for him to take a deep breath because o f left-sided chest discomfort. Otherwise, there has been no interval change to his condition. His c hest tube is to suction. He demonstrates no leak. PHYSICAL EXAMINATION: VITAL SIGNS: Afebrile, pulse 104, blood pressure 109/54, respirations 16, saturation 97% on room air . GENERAL: The patient is awake, alert, no apparent distress. LUNGS: Decent air entry. There is no prolonged expiratory phase or wheezing. HEART: Normal rate, regular. ABDOMEN: Soft, nontender, nondistended. Bowel sounds are positive. MUSCULOSKELETAL: No cyanosis or clubbing. There is no pitting in the bilateral lower extremities. NEUROLOGIC: Grossly nonfocal. LABORATORY DATA: WBC 8.3, hemoglobin 8.6, platelets 517,000. Basic metabolic profile is essentially unremarkable. ASSESSMENT: 1. Poorly differentiated carcinoma, favor lung origin. 2. Status post open lung biopsy. 3. Pneumothorax. 4. Status post chest tube placement. 5. Chronic obstructive pulmonary disease without current exacerbation. 6. Deafness. PLAN: The patient is doing fine from a respiratory standpoint. From my perspective, the leak is don e. As such, we can put the chest tube on waterseal. If tomorrow morning it remains up, we can consi camille removing it and transitioning the patient home. He needs to follow up with Oncology in the outpa tient setting.
[2018-01-24 06:58] LABS: Anion Gap 13 mmol/L (10-20); BUN (Urea Nitrogen) 30 mg/dL (8.4-25.7); Calc. Creatinine Clearance 43 mL/min (70-130); Calcium 9.1 mg/dL (7.8-10.44); Carbon Dioxide 27 mmol/L (23-31); Chloride 96 mmol/L (98-107); Estimated GFR-MDRD 53; Glucose 126 mg/dL (80-115); Potassium 4.1 mmol/L (3.5-5.1); Sodium 132 mmol/L (136-145)
[2018-01-24 07:48] LABS: Band 1 % (5-11); Elliptocytes SLIGHT = 2-5 cells (100X) (0-1/hpf); Eosinophils 4 % (0-10); Lymphocytes 9 % (21-51); MDiff Complete? YES; Mean Corpuscular HGB CONC 31.1 g/dL (32.0-36.0); Mean Corpuscular Hemoglobin 26.9 pg (27.0-31.0); Mean Corpuscular Volume 86.4 fL (78.0-98.0); Mean Platelet Volume 6.1 fL (7.4-10.4); Monocytes 11 % (0-10); Neutrophil 75 % (42-75); PLT Morphology Comment Appears Increased; Platelet Count 491 thou/uL (130-400); RBC Distribution Width 14.4 % (11.5-14.5); Red Blood Cell (RBC) Count 2.97 mill/uL (4.70-6.10); Schistocytes SLIGHT = 2-5 cells (100X) (0-1/hpf); White Blood Cell (WBC) Count 8.7 thou/uL (4.8-10.8)
[2018-01-24] MEDS: Carvedilol 3.125 MG TAB PO SCH (08:11)
[2018-01-24] MEDS: Benztropine 1 MG TAB PO SCH (08:11)
[2018-01-24] MEDS: Famotidine 20 MG TAB PO SCH ×2 (08:12→21:37)
[2018-01-24] MEDS: Digoxin 0.125 MG TAB PO SCH (08:12)
[2018-01-24] MEDS: Furosemide 20 MG TAB PO SCH (08:13)
[2018-01-24] MEDS: Lisinopril 2.5 MG TAB PO SCH (08:13)
[2018-01-24] MEDS: Loratadine 10 MG TAB PO SCH (08:13)
[2018-01-24] MEDS: Polyethylene Glycol 3350 17 GM Packet PO SCH (08:14)
[2018-01-24] MEDS: Rosuvastatin 10 MG TAB PO SCH (08:14)
[2018-01-24] MEDS: Ziprasidone 20 MG CAP PO SCH ×2 (08:14→21:37)
[2018-01-24] MEDS: Tamsulosin HCl 0.4 MG CAP PO SCH (08:14)
--- NOTE | 2018-01-24 10:28 | RAD ---
SINGLE VIEW OF THE CHEST: COMPARISON: 01/23/18. HISTORY: Chest tube placement for pneumothorax. FINDINGS: A single view of the chest shows a normal-size cardiomediastinal silhouette. The chest tube is uncha nged in position without visualization of a pneumothorax. Opacity associated with calcification is s een in the superior aspect of the right thorax. Air is seen along the left chest wall. There is no evidence of consolidation. A mass-like opacity projects over the left upper lobe. IMPRESSION: Stable exam. POS: BARI
[2018-01-24] MEDS ORDERED: Sodium Chloride 0.9% 500 ML IV SCH ×2 (12:15→17:30)
[2018-01-24] MEDS: HYDROcodone/Acetaminophen 7.5/325 mg Tablet PO PRN (12:39)
--- NOTE | 2018-01-24 15:17 | PDOC.PN ---
- Subjective Encounter Start Date: 01/24/18 Encounter Start Time: 12:20 Follow up for lung CA, s/p biopsy and tension PTX with CT placement no compalint,s eating well, no n/V/d/C,no CP. battery head in his hearing aid, hard to communicate, getting replaced. No F/C, no acute events all systems reviewed and neg x as above - Objective Resuscitation Status: Resuscitation Status FULL:Full Resuscitation MAR Reviewed: Yes Vital Signs & Weight: Vital Signs (12 hours) Temp Pulse Resp BP BP BP Pulse Ox 01/24/18 12:00 98 F 108 H 18 102/56 L 96 01/24/18 08:13 110 H 92/55 L 01/24/18 08:12 110 H 01/24/18 08:00 97.2 F L 110 H 16 92/55 L 95 01/24/18 06:19 105 H 18 01/24/18 04:00 96.5 F L 106 H 12 101/60 98 Weight Admit Weight 131 lb Weight 130 lb Most Recent Monitor Data Heart Rate from ECG 115 NIBP 146/131 NIBP BP-Mean 136 Respiration from ECG 19 SpO2 100 I&O: 01/23/18 01/24/18 01/25/18 06:59 06:59 06:59 Intake Total 1020 800 Output Total 750 Balance 1020 50 Result Diagrams: 01/24/18 05:32 01/24/18 05:32 Radiology Reviewed by me: Yes Phys Exam - Physical Examination Constitutional: NAD cachectic HEENT: PERRLA, moist MMs, sclera anicteric, oral pharynx no lesions Neck: no nodes, no JVD, supple, full ROM Respiratory: no wheezing, no rales, no rhonchi, clear to auscultation bilateral Cardiovascular: RRR, no significant murmur, no rub Gastrointestinal: soft, non-tender, no distention, positive bowel sounds Musculoskeletal: no edema, pulses present Neurological: non-focal, normal sensation, moves all 4 limbs Lymphatic: no nodes Psychiatric: normal affect, A&O x 3 Skin: no rash, normal turgor, cap refill <2 seconds Dx/Plan (1) Pneumothorax after biopsy Code(s): J95.811 - POSTPROCEDURAL PNEUMOTHORAX Status: Acute Comment: CT in , keep through weekend on waterseal (2) Acute encephalopathy Code(s): G93.40 - ENCEPHALOPATHY, UNSPECIFIED Status: Resolved Comment: resolved (3) BPH (benign prostatic hyperplasia) Code(s): N40.0 - BENIGN PROSTATIC HYPERPLASIA WITHOUT LOWER URINRY TRACT SYMP Status: Chronic Qualifiers: Lower urinary tract symptom presence: symptoms absent Qualified Code(s): N40.0 - Benign prostatic hyperplasia without lower urinary tract symptoms (4) CHF (congestive heart failure) Code(s): I50.9 - HEART FAILURE, UNSPECIFIED Status: Chronic Qualifiers: Heart failure type: unspecified Heart failure chronicity: chronic Qualified Code(s): I50.9 - Heart failure, unspecified (5) Dyslipidemia Code(s): E78.5 - HYPERLIPIDEMIA, UNSPECIFIED Status: Chronic (6) HTN (hypertension) Code(s): I10 - ESSENTIAL (PRIMARY) HYPERTENSION Status: Chronic Qualifiers: Hypertension type: essential hypertension Qualified Code(s): I10 - Essential (primary) hypertension (7) Lung cancer Code(s): C34.90 - MALIGNANT NEOPLASM OF UNSP PART OF UNSP BRONCHUS OR LUNG Status: Chronic Qualifiers: Laterality: right - Plan * .
--- NOTE | 2018-01-24 19:25 | RAD ---
PORTABLE CHEST 1 VIEW: Date: 01/24/18 Time: 1831 hours HISTORY: Chest tube removal. FINDINGS/IMPRESSION: Comparison made with exam of 01/22/18. Left-sided chest tube has been removed in the interim. No definite pneumothorax seen. Remainder of ex am is stable. POS: H
--- NOTE | 2018-01-24 19:36 | PRG ---
DATE OF SERVICE: 01/24/2018 SERVICE: Pulmonary Medicine. INTERVAL HISTORY: The patient is doing fine from a respiratory standpoint. He denies any current chest pain, nausea, vomiting, fevers or chills. Apparently, his and him got into a tiff today. When he left, he became essentially less responsive. That being said, his chest tube looked like it was doing okay. His air leak had resolved. He has not been having any events overnight. OBJECTIVE: VITAL SIGNS: Afebrile, pulse 108, blood pressure 102/56, respirations 18, saturation 96% on room air. GENERAL: The patient is awake and alert, in no apparent distress. LUNGS: Decent air entry. There is a slightly prolonged expiratory phase, but no wheezing or rhonchi appreciated. HEART: Normal rate, regular. ABDOMEN: Soft, nontender, nondistended. Bowel sounds are positive. MUSCULOSKELETAL: No cyanosis or clubbing. There is no pitting in the bilateral lower extremities. NEUROLOGIC: Grossly nonfocal. I put the patient through a series of maneuvers. He did not demonstrate any air leak; whatsoever, with deep breathing or coughing. LABORATORY DATA: WBC 8.7, hemoglobin 8.0, platelets 491,000. INR 1.0. Creatinine 1.34. Basic metabolic profile is otherwise unremarkable. IMAGING: Chest x-ray demonstrates no significant interval change. There is no visualization of pneumothorax. Mass-like opacities over the left upper lobe. ASSESSMENT: 1. Poorly differentiated carcinoma, favor a lung primary. 2. Percutaneous biopsy of the lung. 3. Iatrogenic pneumothorax status post chest tube placement. 4. Chronic obstructive pulmonary disease without current exacerbation. 5. Deafness DISCUSSION AND PLAN: The patient is doing fine from a respiratory standpoint. He demonstrates no air leak. I received a verbal report that I could remove the chest tube if he was doing clinically well into the afternoon. As such, we will go ahead and proceed with removal of the chest tube device. I will repeat chest x-ray in 2 hours and we will monitor for any signs of decompensation very closely. From a purely respiratory perspective, if the patient's lung is up tomorrow morning and is otherwise doing well, he can be considered for discharge from the hospital. GIL
[2018-01-25 04:19] LABS: #Eosinphils 0.2 thou/uL (0.0-0.7); #Lymphocytes 0.6 thou/uL (1.20-3.40); #Monocytes 1.3 thou/uL (0.11-0.59); #Neutrophils 6.7 thou/uL (1.40-6.50); %Basophils 0.1 % (0.0-1.0); %Lymphocytes 6.6 % (21.0-51.0); %Monocytes 14.3 % (0.0-10.0); %Neutrophils 77.1 % (42.0-75.0); Hemoglobin 8.5 g/dL (14.0-18.0); Mean Corpuscular HGB CONC 31.7 g/dL (32.0-36.0); Mean Corpuscular Hemoglobin 27.1 pg (27.0-31.0); Mean Corpuscular Volume 85.4 fL (78.0-98.0); Platelet Count 505 thou/uL (130-400); RBC Distribution Width 14.1 % (11.5-14.5); Red Blood Cell (RBC) Count 3.15 mill/uL (4.70-6.10); White Blood Cell (WBC) Count 8.7 thou/uL (4.8-10.8)
[2018-01-25 04:38] LABS: Anion Gap 15 mmol/L (10-20); BUN (Urea Nitrogen) 39 mg/dL (8.4-25.7); Calc. Creatinine Clearance 38 mL/min (70-130); Calcium 9.1 mg/dL (7.8-10.44); Carbon Dioxide 26 mmol/L (23-31); Chloride 96 mmol/L (98-107); Estimated GFR-MDRD 45; Glucose 122 mg/dL (80-115); Magnesium 1.8 mg/dL (1.6-2.6); Sodium 133 mmol/L (136-145)
--- NOTE | 2018-01-25 08:27 | PDOC.PN ---
- Subjective Encounter Start Date: 01/25/18 Encounter Start Time: 08:26 Denies any problems or concerns. Says he lives at home by himself. Says he had a in the area that lives with him intermittently. Believes he can function at home because he has done so for the past 9 years. - Objective Resuscitation Status: Resuscitation Status FULL:Full Resuscitation MAR Reviewed: Yes Vital Signs & Weight: Vital Signs (12 hours) Temp Pulse Resp BP BP BP Pulse Ox 01/25/18 07:57 98.6 F 112 H 18 125/59 L 96 01/25/18 07:11 107 H 20 93 L 01/25/18 04:00 97.8 F 117 H 20 119/83 96 01/25/18 00:30 99 20 95 01/25/18 00:00 98.0 F 99 12 103/55 L 95 01/24/18 21:33 104/51 L Weight Admit Weight 131 lb Weight 148 lb 3.2 oz Most Recent Monitor Data Heart Rate from ECG 115 NIBP 146/131 NIBP BP-Mean 136 Respiration from ECG 19 SpO2 100 I&O: 01/24/18 01/25/18 01/26/18 06:59 06:59 06:59 Intake Total 800 1840 Output Total 750 850 Balance 50 990 Result Diagrams: 01/25/18 03:32 01/25/18 03:32 Phys Exam - Physical Examination Constitutional: NAD Cachetic, confused Respiratory: no wheezing, no rales, no rhonchi, clear to auscultation bilateral Diminshed in RUL Cardiovascular: RRR, no significant murmur, no rub Tachy Gastrointestinal: soft, non-tender, no distention Musculoskeletal: no edema Deviation from normal: Patient is not oriented to place or month. Confused in his responses. Dx/Plan (1) Pneumothorax after biopsy Code(s): J95.811 - POSTPROCEDURAL PNEUMOTHORAX Status: Acute Comment: CT removed. Stable from pulmonary. (2) Lung cancer Code(s): C34.90 - MALIGNANT NEOPLASM OF UNSP PART OF UNSP BRONCHUS OR LUNG Status: Chronic Qualifiers: Laterality: right (3) Acute encephalopathy Code(s): G93.40 - ENCEPHALOPATHY, UNSPECIFIED Status: Resolved Comment: Confused. Needs discharge planning. Will try to reduce opioids. (4) Prerenal azotemia Code(s): R79.89 - OTHER SPECIFIED ABNORMAL FINDINGS OF BLOOD CHEMISTRY Status : Acute Comment: Had a liter of fluids yesterday and had his lasix held. Numbers worse today. Decent UOP. (5) HTN (hypertension) Code(s): I10 - ESSENTIAL (PRIMARY) HYPERTENSION Status: Chronic Qualifiers: Hypertension type: essential hypertension Qualified Code(s): I10 - Essential (primary) hypertension Comment: Continue ACEI (6) BPH (benign prostatic hyperplasia) Code(s): N40.0 - BENIGN PROSTATIC HYPERPLASIA WITHOUT LOWER URINRY TRACT SYMP Status: Chronic Qualifiers: Lower urinary tract symptom presence: symptoms absent Qualified Code(s): N40.0 - Benign prostatic hyperplasia without lower urinary tract symptoms (7) Dyslipidemia Code(s): E78.5 - HYPERLIPIDEMIA, UNSPECIFIED Status: Chronic (8) CHF (congestive heart failure) Code(s): I50.9 - HEART FAILURE, UNSPECIFIED Status: Chronic Qualifiers: Heart failure type: unspecified Heart failure chronicity: chronic Qualified Code(s): I50.9 - Heart failure, unspecified Comment: Lasix held. ACEI continued. Coreg continued. - Plan * As above. * Hydrate today to address pre-renal azotemia. * Reduce opioids to see if mental status will improve. * Discharge planning. * PT eval today. * Cleared by Pulm if CXR ok.
--- NOTE | 2018-01-25 08:38 | RAD ---
CHEST 1 VIEW: COMPARISON: 01/24/18. HISTORY: Status post lung biopsy. FINDINGS: Portable semiupright chest radiograph demonstrates persistent opacification of the right upper lobe. There is evidence of subcutaneous emphysema in the left hemithorax. Left-sided pneumothorax is not appreciated. Stable configuration of the cardiomediastinal silhouette. IMPRESSION: 1. Stable left-sided subcutaneous emphysema. 2. No pneumothorax. 3. Stable opacity in the right upper lobe. POS: [facility]
[2018-01-25] MEDS ORDERED: Sodium Chloride 0.9% 1,000 ML IV SCH (08:45)
[2018-01-25] MEDS: Digoxin 0.125 MG TAB PO SCH (08:57)
[2018-01-25] MEDS: Benztropine 1 MG TAB PO SCH (08:57)
[2018-01-25] MEDS: Polyethylene Glycol 3350 17 GM Packet PO SCH (08:58)
[2018-01-25] MEDS: Famotidine 20 MG TAB PO SCH (08:58)
[2018-01-25] MEDS: Lisinopril 2.5 MG TAB PO SCH (08:58)
[2018-01-25] MEDS: Loratadine 10 MG TAB PO SCH (08:58)
[2018-01-25] MEDS: Tamsulosin HCl 0.4 MG CAP PO SCH (08:58)
[2018-01-25] MEDS: Rosuvastatin 10 MG TAB PO SCH (08:58)
[2018-01-25] MEDS: Carvedilol 3.125 MG TAB PO SCH (08:58)
[2018-01-25] MEDS: Ziprasidone 20 MG CAP PO SCH ×2 (08:59→20:58)
--- NOTE | 2018-01-25 12:22 | PRG ---
DATE OF SERVICE: 01/25/2018 SUBJECTIVE: Chest tube was removed. OBJECTIVE: GENERAL: Appears to be in no distress, no shortness of breath. X-ray shows no pneumothorax. VITAL SIGNS: Sats are 96% on room air, pulse 112, temperature 98, blood pressure 140/80. CHEST: Chest reveals decreased breath sounds, no wheezing. CARDIAC: Normal S1, S2. ABDOMEN: Soft, no masses. LABORATORY DATA: Creatinine 1.5, baseline slightly elevated. IMPRESSION: Status post pneumothorax. Mild azotemia. PLAN: IV has been discontinued. May consider discontinuing his Zestril. Otherwise, disposition as per primary care physician.
[2018-01-25] MEDS: Ondansetron HCl/PF 4 MG/2 ML Vial SLOW IVP PRN (21:04)
[2018-01-26 04:03] LABS: #Lymphocytes 0.5 thou/uL (1.20-3.40); #Monocytes 1.1 thou/uL (0.11-0.59); #Neutrophils 10.1 thou/uL (1.40-6.50); %Eosinophils 0.1 % (0.0-10.0); %Monocytes 9.4 % (0.0-10.0); %Neutrophils 86.4 % (42.0-75.0); Hemoglobin 8.5 g/dL (14.0-18.0); Mean Corpuscular HGB CONC 31.8 g/dL (32.0-36.0); Mean Corpuscular Hemoglobin 26.8 pg (27.0-31.0); Mean Corpuscular Volume 84.4 fL (78.0-98.0); Platelet Count 518 thou/uL (130-400); RBC Distribution Width 14.2 % (11.5-14.5); Red Blood Cell (RBC) Count 3.16 mill/uL (4.70-6.10); White Blood Cell (WBC) Count 11.7 thou/uL (4.8-10.8)
[2018-01-26 04:10] LABS: Anion Gap 16 mmol/L (10-20); BUN (Urea Nitrogen) 41 mg/dL (8.4-25.7); Calc. Creatinine Clearance 57 mL/min (70-130); Calcium 9.5 mg/dL (7.8-10.44); Carbon Dioxide 32 mmol/L (23-31); Chloride 92 mmol/L (98-107); Estimated GFR-MDRD 62; Glucose 168 mg/dL (80-115); Potassium 4.1 mmol/L (3.5-5.1); Sodium 136 mmol/L (136-145)
[2018-01-26] MEDS: Famotidine 20 MG TAB PO SCH (09:14)
[2018-01-26] MEDS: Benztropine 1 MG TAB PO SCH (09:14)
[2018-01-26] MEDS: Digoxin 0.125 MG TAB PO SCH (09:14)
[2018-01-26] MEDS: Lisinopril 2.5 MG TAB PO SCH (09:14)
[2018-01-26] MEDS: Rosuvastatin 10 MG TAB PO SCH (09:14)
[2018-01-26] MEDS: Tamsulosin HCl 0.4 MG CAP PO SCH (09:15)
[2018-01-26] MEDS: Polyethylene Glycol 3350 17 GM Packet PO SCH (09:15)
[2018-01-26] MEDS: Ziprasidone 20 MG CAP PO SCH ×2 (09:15→20:53)
[2018-01-26] MEDS: Carvedilol 3.125 MG TAB PO SCH (09:15)
[2018-01-26] MEDS: Loratadine 10 MG TAB PO SCH (09:15)
--- NOTE | 2018-01-26 11:55 | RAD ---
KUB: Date: 01-26-18 Comparison: None. History: Distention. FINDINGS: There is incompletely imaged subcutaneous emphysema in the left chest wall. There is dense abnormal c alcification involving the right upper lobe, incompletely imaged, better evaluated on recent chest ra diograph. Post-operative clips are noted in the right suprahilar region. There is a small nodule in the left upper lobe region measuring 8 mm, incompletely assessed on this e xamination. There is significant stool within the rectum. There is gas within multiple loops of large and small b owel. Evaluation for free intraperitoneal air and small bowel obstruction is limited given supine mustapha ging. There are gas filled dilated loops of small bowel measuring up to 4.8 cm within the mid abdomen /mid left abdomen. IMPRESSION: Gaseous distention of bowel within the abdomen/pelvis, including small bowel. This could signify ileu s or small bowel obstruction. This could be better assessed via CT examination as clinically warrante d. Significant stool within the rectum may signify fecal impaction. POS: [facility]
--- NOTE | 2018-01-26 12:35 | PRG ---
DATE OF SERVICE: 01/26/2018 SUBJECTIVE: This is a 67-year-old gentleman, remains encephalopathic, but in no distress. OBJECTIVE: VITAL SIGNS: Sats 90% on room air, respirations 20, temperature 98, pulse 109, blood pressure 130/74. CHEST: Decreased breath sounds, no wheezing. CARDIAC: Normal S1 and S2. No gallops. ABDOMEN: Soft. No masses. IMPRESSION: 1. Status post pneumothorax. 2. Encephalopathy/Dementia. From a pulmonary standpoint of view, the patient ready to go home. Follow up with Oncology on an outpatient basis. HANKD
--- NOTE | 2018-01-26 16:06 | PDOC.PN ---
- Subjective Encounter Start Date: 01/26/18 Encounter Start Time: 09:30 Patient could not hear because the cochlear implants were . Ask how he was feeling in a written note and he responded "Get my gun!". Had an episode of vomiting this morning. 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 - Objective Resuscitation Status: Resuscitation Status FULL:Full Resuscitation MAR Reviewed: Yes Vital Signs & Weight: Vital Signs (12 hours) Temp Pulse Pulse Pulse Resp BP BP 01/26/18 12:00 98.5 F 109 H 20 01/26/18 11:35 99 18 01/26/18 09:29 113 H 113 H 151/67 H 137/63 01/26/18 09:14 109 H 01/26/18 08:00 98.0 F 109 H 20 01/26/18 06:58 101 H 16 BP Pulse Ox 01/26/18 12:00 137/89 95 01/26/18 11:35 94 L 01/26/18 09:29 01/26/18 09:14 01/26/18 08:00 136/74 95 01/26/18 06:58 95 Weight Admit Weight 131 lb Weight 141 lb 12.8 oz Most Recent Monitor Data Heart Rate from ECG 115 NIBP 146/131 NIBP BP-Mean 136 Respiration from ECG 19 SpO2 100 I&O: 01/25/18 01/26/18 01/27/18 06:59 06:59 06:59 Intake Total 1840 720 Output Total 850 1100 Balance 990 -380 Result Diagrams: 01/26/18 03:21 01/26/18 03:21 Phys Exam - Physical Examination Constitutional: NAD Cachetic. Deaf with cochlear implant's batteries . Cachetic. Neck: no JVD, supple Respiratory: no wheezing, no rales, no rhonchi, clear to auscultation bilateral Diminshed Cardiovascular: RRR, no significant murmur, no rub Borderline tachy. Gastrointestinal: soft, positive bowel sounds Distended with hyper-resonance. Non-tender. Musculoskeletal: no edema Deviation from normal: Still does not appear to be oriented at times. Dx/Plan (1) Pneumothorax after biopsy Code(s): J95.811 - POSTPROCEDURAL PNEUMOTHORAX Status: Resolved Comment: CT removed. Stable from pulmonary. (2) Lung cancer Code(s): C34.90 - MALIGNANT NEOPLASM OF UNSP PART OF UNSP BRONCHUS OR LUNG Status: Chronic Qualifiers: Laterality: right Plan: Discussed with patient's today. She wants to get him home and get him to the Oncologists office so he can get a complete workup and consider treatment. (3) Acute encephalopathy Code(s): G93.40 - ENCEPHALOPATHY, UNSPECIFIED Status: Resolved Plan: Difficult to assess in light of his hearing difficulties. Working on fixing that. More interactive today. (4) Prerenal azotemia Code(s): R79.89 - OTHER SPECIFIED ABNORMAL FINDINGS OF BLOOD CHEMISTRY Status : Acute Plan: Slightly better numbers today. He is not eating or drinking much. (5) HTN (hypertension) Code(s): I10 - ESSENTIAL (PRIMARY) HYPERTENSION Status: Chronic Qualifiers: Hypertension type: essential hypertension Qualified Code(s): I10 - Essential (primary) hypertension Comment: Continue ACEI (6) BPH (benign prostatic hyperplasia) Code(s): N40.0 - BENIGN PROSTATIC HYPERPLASIA WITHOUT LOWER URINRY TRACT SYMP Status: Chronic Qualifiers: Lower urinary tract symptom presence: symptoms absent Qualified Code(s): N40.0 - Benign prostatic hyperplasia without lower urinary tract symptoms (7) Dyslipidemia Code(s): E78.5 - HYPERLIPIDEMIA, UNSPECIFIED Status: Chronic (8) CHF (congestive heart failure) Code(s): I50.9 - HEART FAILURE, UNSPECIFIED Status: Chronic Qualifiers: Heart failure type: unspecified Heart failure chronicity: chronic Qualified Code(s): I50.9 - Heart failure, unspecified Comment: Lasix held. ACEI continued. Coreg continued. (9) Abdominal distention Code(s): R14.0 - ABDOMINAL DISTENSION (GASEOUS) Status: Acute Plan: KUB appears to show stool in the rectum. No BM documented for several days. reports that he has problems with constipation. Nausea may be related. Will give the Dulcolax suppository. (10) Nausea & vomiting Code(s): R11.2 - NAUSEA WITH VOMITING, UNSPECIFIED Status: Acute Plan: Mild. Suspect related to the constipation. - Plan * His wants to take him home. She understands that he is weak and will be challenging, but she feels confident that she can manage him at home.
[2018-01-26] MEDS: Ondansetron HCl/PF 4 MG/2 ML Vial SLOW IVP PRN (19:15)
[2018-01-26] MEDS: Heparin 5,000 UNITS/ML VIAL SC SCH (20:53)
[2018-01-27 05:36] LABS: BUN (Urea Nitrogen) 57 mg/dL (8.4-25.7); Calc. Creatinine Clearance 40 mL/min (70-130); Calcium 9.7 mg/dL (7.8-10.44); Estimated GFR-MDRD 45; Glucose 159 mg/dL (80-115)
[2018-01-27 05:45] LABS: Anion Gap 18 mmol/L (10-20); Carbon Dioxide 36 mmol/L (23-31); Chloride 86 mmol/L (98-107); Potassium 3.8 mmol/L (3.5-5.1); Sodium 136 mmol/L (136-145)
--- NOTE | 2018-01-27 08:24 | CON ---
DATE OF CONSULTATION: 01/26/2018 REASON FOR CONSULTATION: Lung cancer. HISTORY OF PRESENT ILLNESS: Mr. Maher is a 67-year-old male who has a history of adeno carcinoma of the lung. He had a right upper lobectomy in 2007 in [place], [place]. He underwent treatm ent with Taxotere, carboplatin, and radiation therapy. He did have an esophageal stricture secondary to radiation therapy. He began to have some personality changes and had a CT scan of his chest, [facility] showed a large left-sided lung mass. He then underwent a percutaneous biopsy and unfortunately, h ad a pneumothorax post-biopsy. He was admitted to this facility on 01/15/2018. He did have a chest tube placed that has now been discontinued. The patient is scheduled to go home in the next few days . We were asked to see the patient regarding his lung cancer. PAST MEDICAL HISTORY: 1. Adenocarcinoma of the right upper lobe, status post lobectomy in 2007. 2. 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 3. History of SIADH. 4. Congestive heart failure. 5. Depression. PAST SURGICAL HISTORY: 1. Hernia repair. 2. Right lobectomy. 3. Corneal transplants. ALLERGIES: PENICILLIN. HOME MEDICATIONS: 1. ProAir inhaler daily. 2. Carvedilol 3.125 mg daily. 3. Lanoxin 0.125 mg daily. 4. Lasix 20 mg daily. 5. Hydrocodone p.r.n. 6. Lisinopril 2.5 mg daily. 7. Calcium 10 mg daily. 8. Flomax 0.4 mg daily. FAMILY HISTORY: Mother had diabetes and lymphoma. He has a family history of hearing loss. SOCIAL HISTORY: , has one child. 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 REVIEW OF SYSTEMS: Negative. PHYSICAL EXAMINATION: VITAL SIGNS: Temperature 97.6, pulse is 111, respiratory rate 20, BP is 137/63. He is 94% on room a ir. GENERAL: This is a chronically ill-appearing male, in no acute distress. HEENT: Normocephalic, atraumatic. Pupils equal, reactive to light. NECK: Supple. HEART: Regular rate and rhythm. He is tachycardic. LUNGS: Clear anteriorly. ABDOMEN: Soft, nontender, bowel sounds are positive. EXTREMITIES: No clubbing, cyanosis or edema. SKIN: No rash. HEMATOLOGIC: No petechia or purpura. NEUROLOGIC: Nonfocal. PSYCHIATRIC: The patient is mildly confused with some memory loss. PERTINENT LABORATORY AND X-RAYS: Current WBCs are 11.7, hemoglobin 8.5, hematocrit 26.7, platelet co unt 518,000, 86% neutrophils, 4% lymphocytes. Sodium is 136, potassium 4.1, chloride 92, CO2 is 32, BUN is 41, creatinine 1.17, calcium is 9.5, magnesium 1.8, total bilirubin is 0.5, AST is 25, ALT is 15, alkaline phosphatase is 85. Serum total protein is 5.8, albumin 3.3, globulin 2.5. ASSESSMENT: 1. Adenocarcinoma of the left upper lobe of the lung. 2. Status post pneumothorax after biopsy. 3. Toxic metabolic encephalopathy. The patient had an appointment last week to see Dr. Finnegan for his lung cancer. This has been resc heduled until 02/02/2018 at 1600, at that time, treatment options will be discussed. Hopefully, the patient will continue to regain strength and improve over the next week and a half. For the consult, we will follow up with this gentleman in the outpatient setting. Based on his performance status an d overall health, chemotherapy .
--- NOTE | 2018-01-27 08:47 | PRG ---
DATE OF SERVICE: 01/27/2018 SUBJECTIVE: He is awake, alert, and responsive, still agitated. OBJECTIVE: VITAL SIGNS: Pulse is 101, temperature 98, sats are 94% on room air, blood pressure 140/68. GENERAL: He is eating breakfast, appears to be in no distress. CHEST: Decreased breath sounds without any wheezing. CARDIAC: Normal S1, S2. No gallops. ABDOMEN: Soft, no masses. IMPRESSION: Azotemia, hypertension, encephalopathy. PLAN: Discontinue Zestril. Continue supportive care and PT. DISPOSITION: As per primary care physician.
--- NOTE | 2018-01-27 08:53 | PDOC.EVN ---
Event Note - Event Note Event Note: More awake and alert today. Keeps taking off his cochlear aids. Still feels "gassy". VSS. Heart regular, borderline tachy. Lungs diminished, but clear. Abdomen distended, but not tense. Minimal bowel sounds. Discussed with his . She is extremely confident that she can manage his bowel issues at home. States this is a common and recurring issue for him. We agreed to have PT see him again today and then discharge him to home this afternoon. She prefers not have HH/HPT set up by me, but will assess him herself when she gets him home. If she feels the need to resume that, she will take care of it.
[2018-01-27] MEDS: Carvedilol 3.125 MG TAB PO SCH (09:00)
[2018-01-27] MEDS: Benztropine 1 MG TAB PO SCH (09:00)
[2018-01-27] MEDS: Ziprasidone 20 MG CAP PO SCH (09:00)
[2018-01-27] MEDS: Polyethylene Glycol 3350 17 GM Packet PO SCH (09:01)
[2018-01-27] MEDS: Famotidine 20 MG TAB PO SCH (09:01)
[2018-01-27] MEDS: Tamsulosin HCl 0.4 MG CAP PO SCH (09:01)
[2018-01-27] MEDS: Loratadine 10 MG TAB PO SCH (09:01)
[2018-01-27] MEDS: Heparin 5,000 UNITS/ML VIAL SC SCH (09:01)
[2018-01-27] MEDS: Digoxin 0.125 MG TAB PO SCH (09:01)
[2018-01-27] MEDS: Rosuvastatin 10 MG TAB PO SCH (09:01)
--- NOTE | 2018-01-27 09:10 | DIS ---
DATE OF ADMISSION: 01/15/2018 DATE OF DISCHARGE: 01/27/2018 DIAGNOSES: Left lung mass, status post percutaneous biopsy with resultant pneumothorax. PROCEDURES: 1. Percutaneous lung biopsy. 2. Chest tube placement. DESCRIPTION OF HOSPITAL STAY: Mr. Maher is a 67-year-old gentleman who probably has widely metas tatic lung cancer. He underwent percutaneous biopsy of his lung mass. Pathologic examination reveal ed a poorly differentiated carcinoma. He had resultant pneumothorax which initially was managed with a small tube placed in Radiology, but this was ineffective. Therefore, a larger chest tube was plac ed. It took a while for the puncture to seal, but eventually, we got sealed with conservative therap y. He is being discharged to home to his 's care. The patient has had significant mental status changes according to his . He is due to get outpat ient PET scan. He also has a scheduled appointment with Dr. Finnegan for further management. Home m edications have been unchanged.
--- NOTE | 2018-01-27 10:44 | CT ---
PROCEDURE: 1. Placement of left anterior chest tube with CT confirmation post chest tube placement performed at approximately 1148 hours. 2. Adjustment of the anterior chest tube with repeat CT chest at approximately 1252 hours. INDICATIONS: 1. Following a CT biopsy procedure, patient was taken to holding. The left lung biopsy was performed without complications and there was no pneumothorax post biopsy on the postprocedure CT. 2. Patient became hypoxic in the recovery room and a STAT chest x-ray revealed a large left pneumoth orax. Patient was taken back to CT for chest tube placement. The left anterior upper chest was prepped in the sterile manner. An Arrow 8 Moz[place]ican chest tube cathete r with trocar needle in place was inserted into the anterior left chest. The trocar was removed and t he catheter was advanced. The catheter was then attached to suction drainage. A CT scan was then performed and this confirmed reexpansion of the left lung with no significant resi dual pneumothorax. The chest tube appeared in adequate position. The tube was then secured with sutur e at the skin and a dressing placed. The tube was connected to Heimlich valve. PROCEDURE NOTE: After noticing a large left pneumothorax on the chest film and patient having low O2 sats, the patien t was immediately taken back to CT. The patient was placed on the CT table. The skin was cleaned with Betadine and an Arrow 8 Moz[place]ican chest tube kit was utilized. The 8 [place] catheter with trocar was in serted into the left chest anteriorly and the catheter was advanced as the trocar was removed. Cathet er was attached to suction drainage. After suctioning the pneumothorax, CT confirmed no significant l eft pneumothorax. The catheter was then sutured to the skin and a sterile dressing applied. Heimlich valve was attached. Patient was taken back to the recovery room. The O2 sats returned to baseline and the patient was having no distress. A repeat chest x-ray taken in holding revealed a recurrent pneumothorax, even with chest tube in plac e and connected to Heimlich valve. The patient was then taken back to CT, where the tube was slightly readjusted and reattached to suction drainage. A repeat CT after readjustment confirmed reexpansion of the lung with only minimal residual pneumothorax at this time. A new sterile dressing was then nadira lied and the tube was reattached to Heimlich. The patient was in no distress, with O2 sats in the 90s . The patient was then taken back to recovery.
[2018-01-27 14:15] VITALS: BMI 18.6
[2018-01-27 15:27] VITALS: BP 115/67; TEMP 98
--- NOTE | 2018-01-29 08:58 | PQF ---
SMITHA LUNDY JR, CHARLES H MD [id number] CLINICAL DOCUMENTATION CLARIFICATION FORM: POST DISCHARGE Addendum to original discharge summary date: ____ Late entry note date: __ Please clarify if the left upper lobe neoplasm is a Secondary (metastatic) site or New or Overlapping Primary site. Please exercise your independent, professional judgment in responding to the clarification form. Clinical indicators are provided on the bottom of this form for your review Please check appropriate box(s): [ ] Neoplasm: Site: : left upper lobe lung Laterality Type: [ ] Primary [ ] Secondary [ ] In situ [ ] Overlapping primary [ ] Other diagnosis [ ] Unable to determine In addition, please specify: Present on Admission (POA): [ ] Yes [ ] No [ ] Unable to determine For continuity of documentation, please document condition throughout progress notes and discharge summary. Thank You. CLINICAL INDICATORS - SIGNS / SYMPTOMS / LABS Biopsy results-adenocarcinoma Site and nature of the neoplasm Positive CT / MRI Weight Loss RISK FACTORS History or Neoplasm TREATMENT: biposy (This form is maintained as a part of the permanent medical record) 2014 [employer] All Rights Reserved [email or web address] [phone] [email or web address]
== END 2018-01-27 16:59 | disposition home or self-care (01) | DRG 199 ==
LOC: CT 08:20 → 2NO 14:13 → CCU 01-19 13:46 → 2NO 01-20 15:19
PROVIDERS: ADMIT Thoracic Surgery (Cardiothoracic Vascular Surgery); ATTEND Thoracic Surgery (Cardiothoracic Vascular Surgery)
PROC: 0BBG3ZX Excision of Left Upper Lung Lobe, Percutaneous Approach, Diagnostic (ICD-10-PCS; principal; 2018-01-15)
PROC: 0W9B30Z Drainage of Left Pleural Cavity with Drainage Device, Percutaneous Approach (ICD-10-PCS; 2018-01-15)
DX: J95.811 Postprocedural pneumothorax (principal); G92 Toxic encephalopathy; Z68.1 Body mass index [BMI] 19.9 or less, adult; I50.42 Chronic combined systolic (congestive) and diastolic (congestive) heart failure; R64 Cachexia; C78.01 Secondary malignant neoplasm of right lung; C78.02 Secondary malignant neoplasm of left lung; I11.0 Hypertensive heart disease with heart failure; Y84.8 Other medical procedures as the cause of abnormal reaction of the patient, or of later complication, without mention of misadventure at the time of the procedure; K22.2 Esophageal obstruction; Y84.2 Radiological procedure and radiotherapy as the cause of abnormal reaction of the patient, or of later complication, without mention of misadventure at the time of the procedure; F32.9 Major depressive disorder, single episode, unspecified; R79.89 Other specified abnormal findings of blood chemistry; K59.00 Constipation, unspecified; E78.5 Hyperlipidemia, unspecified; N40.0 Benign prostatic hyperplasia without lower urinary tract symptoms; H91.93 Unspecified hearing loss, bilateral; Z87.19 Personal history of other diseases of the digestive system; Z92.21 Personal history of antineoplastic chemotherapy; Z85.118 Personal history of other malignant neoplasm of bronchus and lung; Z79.899 Other long term (current) drug therapy; Z92.3 Personal history of irradiation; Z90.2 Acquired absence of lung [part of]; Z82.3 Family history of stroke; Z80.9 Family history of malignant neoplasm, unspecified; Z87.891 Personal history of nicotine dependence; Z94.89 Other transplanted organ and tissue status; Z88.0 Allergy status to penicillin; Z78.1 Physical restraint status
CPT/HCPCS: 32405; 36415; 36416; 71045; 71046; 71250; 74018; 77002; 80048; 80053; 82805; 83735; 85025; 85610; 85730; 88305; 88313; 88333; 88341; 88342; 93005; 93010; 94640; 94799; A4216; G8978-GP-CM; G8979-GP-CK; G8987-GO-CK; G8988-GO-CI; J1200; J1630; J1644; J1885; J2001; J2060; J2250; J2405; J3010; J3486; J7620

== ENCOUNTER → 2018-01-21 | Outpatient (CLI) | payer MEDICARE ==
--- NOTE | 2018-01-21 09:18 | RAD ---
SINGLE VIEW OF THE CHEST: DATE: 01/20/18. HISTORY: Chest tube placement. FINDINGS: A single view of the chest shows a normal-size cardiomediastinal silhouette. A left-sided chest tube is again seen with a minimal left apical pneumothorax. Air is seen in the left chest wall. Opacifi cation associated with calcifications is seen in the right upper thorax, unchanged. IMPRESSION: Stable minimal left apical pneumothorax. POS: OFF
== END ==
LOC: RAD 09:00
PROVIDERS: ATTEND Thoracic Surgery (Cardiothoracic Vascular Surgery)
DX: C34.91 Malignant neoplasm of unspecified part of right bronchus or lung (principal); C79.89 Secondary malignant neoplasm of other specified sites; J93.9 Pneumothorax, unspecified
CPT/HCPCS: 71045